=== PATIENT | female | born 2000 | race Two or more races ===

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

== ENCOUNTER 2019-02-12 03:00 | Emergency (ER) | payer SELFPAY ==
[2019-02-12] MEDS ORDERED: NORMAL SALINE 1000 ML 1,000 ML IV ONE (03:17)
[2019-02-12] MEDS ORDERED: ONDANSETRON HCL INJ/PF 4 MG/2 ML SDV IV ONE (03:34)
[2019-02-12 03:40] LABS: HEMOGLOBIN 13.8 g/dL (12.0-15.5); MEAN CORPUSCULAR HEMOGLOBIN 29.7 pg (27.0-33.4); MEAN CORPUSCULAR HGB CONC 32.9 g/dL (32.0-36.0); MEAN CORPUSCULAR VOLUME 90 fl (80-97); PLATELET COUNT 374 10^3/uL (150-450); RED BLOOD COUNT 4.66 10^6/uL (3.72-5.28); RED CELL DISTRIBUTION WIDTH 13.4 % (11.5-14.0); WHITE BLOOD COUNT 23.7 10^3/uL (4.0-10.5)
[2019-02-12 03:59] LABS: ALBUMIN 4.6 g/dL (3.7-5.6); ALKALINE PHOSPHATASE 73 U/L (50-135); ANION GAP 10 (5-19); ASPARTATE AMINO TRANSFERASE 36 U/L (5-30); BILIRUBIN,DIRECT 0.2 mg/dL (0.0-0.4); BILIRUBIN,TOTAL 0.5 mg/dL (0.2-1.3); BLOOD UREA NITROGEN 18 mg/dL (7-20); CALCIUM 9.8 mg/dL (8.4-10.2); CARBON DIOXIDE 22 mmol/L (22-30); CHLORIDE 108 mmol/L (98-107); GLUCOSE 134 mg/dL (75-110); POTASSIUM 5.2 mmol/L (3.6-5.0); TOTAL PROTEIN 8.1 g/dL (6.3-8.2)
[2019-02-12 04:03] LABS: ABSOLUTE LYMPHOCYTES# (MANUAL) 1.4 10^3/uL (0.5-4.7); ABSOLUTE MONOCYTES # (MANUAL) 0.5 10^3/uL (0.1-1.4); BASOPHILS % (MANUAL) 0 % (0-2); EOSINOPHILS % (MANUAL) 0 % (0-6); LYMPHOCYTES % (MANUAL) 6 % (13-45); MONOCYTES % (MANUAL) 2 % (3-13); SEGMENTED NEUTROPHILS % (MAN) 92 % (42-78); TOTAL CELLS COUNTED 100
[2019-02-12 04:05] LABS: OVALOCYTES SLIGHT; PLATELET COMMENT ADEQUATE
[2019-02-12 05:58] LABS: APPEARANCE,URINE CLOUDY; BILIRUBIN,URINE NEGATIVE (NEGATIVE); COLOR,URINE YELLOW; GLUCOSE, URINE NEGATIVE (NEGATIVE); KETONES,URINE TRACE mg/dL (NEGATIVE); LEUKOCYTE ESTERASE,URINE SMALL (NEGATIVE); NITRITE,URINE NEGATIVE (NEGATIVE); PROTEIN,URINE 30 mg/dL (NEGATIVE); URINE SPECIFIC GRAVITY 1.012; UROBILINOGEN,URINE NEGATIVE mg/dL (<2.0)
--- NOTE | 2019-02-12 06:19 | ER Document Report ---
ED General - General Chief Complaint: Abdominal Pain Stated Complaint: ABDOMINAL PAIN Time Seen by Provider: 02/12/19 06:15 Primary Care Provider: ERIC PETERSON MD [Primary Care Provider] - Follow up as needed TRAVEL OUTSIDE OF THE [place] IN LAST 30 DAYS: No - HPI Patient complains to provider of: Abdominal pain Notes: 18-year-old female presents with approximately 6 hours of epigastric abdominal pain 8/10 sharp in nature without radiation nothing makes it better or worse. This is been associated profound nausea and vomiting. Patient does have history of urinary tract infections along with severe constipation. Patient denies any fever chills or trauma to her abdomen. - Related Data Allergies/Adverse Reactions: sulfamethoxazole [From Septra] Allergy (Unknown, Verified 11/24/18 10:07) trimethoprim [From Septra] Allergy (Unknown, Verified 11/24/18 10:07) latex [Latex] Allergy (Verified 11/24/18 10:07) petrolatum,white [From Petroleum Jelly] Allergy (Verified 11/24/18 10:07) Past Medical History - Social History Smoking Status: Never Smoker Chew tobacco use (# tins/day): No Drug Abuse: None Family History: Hypertension Patient has suicidal ideation: No Patient has homicidal ideation: No Renal/ Medical History: Denies: Hx Peritoneal Dialysis Musculoskeletal Medical History: Reports Hx Musculoskeletal Trauma Past Surgical History: Reports: Hx Orthopedic Surgery, Hx Urinary Tract Surgery - Immunizations Immunizations up to date: Yes Hx Diphtheria, Pertussis, Tetanus Vaccination: Yes Review of Systems - Review of Systems Notes: REVIEW OF SYSTEMS: CONSTITUTIONAL: -fevers, -chills EENT: -eye pain, -difficulty swallowing, -nasal congestion CARDIOVASCULAR: -chest pain, -syncope. RESPIRATORY: -cough, -SOB GASTROINTESTINAL: positive abdominal pain, positive n/v, -diarrhea GENITOURINARY: -dysuria, -hematuria MUSCULOSKELETAL: -back pain, -neck pain SKIN: -rash or skin lesions. HEMATOLOGIC: -easy bruising or bleeding. LYMPHATIC: -swollen, enlarged glands. NEUROLOGICAL: -altered mental status or loss of consciousness, -headache, - neurologic symptoms PSYCHIATRIC: -anxiety, -depression. ALL OTHER SYSTEMS REVIEWED AND NEGATIVE. Physical Exam - Vital signs Vitals: Temp Pulse Resp BP Pulse Ox 97.3 F 67 18 123/79 100 02/12/19 03:14 10/11/19 03:14 02/12/19 03:14 02/12/19 03:14 02/12/19 03:14 Course - Re-evaluation Re-evalutation: 02/12/19 09:11 Pleasant 18-year-old female with medical history of bowel resection in the past. Born with some spina bifida multiple UTI history. Presents with abdominal pain concerning for severe constipation versus UTI. Patient's blood work does find leukocytosis. Physical exam reassuring. Patient is afebrile stable vitals within normal limits. Patient's urine appears to have mild infection. We will treat this infection with antibiotics and send for urine culture. Patient's abdomen pelvis CT finds no acute process at this time. Lengthy conversation with family regarding possible change in symptomatology requirement to follow-up with PCP. Will also prescribe antiemetics and analgesia. Given strict return precautions anything should worsen or change please return. - Vital Signs Vital signs: Temp Pulse Resp BP Pulse Ox 97.9 F 81 17 117/74 100 02/12/19 05:23 02/12/19 05:23 02/12/19 05:23 02/12/19 05:23 02/12/19 05:23 - Laboratory Result Diagrams: 02/12/19 03:30 02/12/19 03:30 Laboratory results interpreted by me: 02/12/19 02/12/19 02/12/19 03:30 03:30 05:18 WBC 23.7 H Seg Neuts % (Manual) 92 H Lymphocytes % (Manual) 6 L Monocytes % (Manual) 2 L Abs Neuts (Manual) 21.8 H Potassium 5.2 H Chloride 108 H Glucose 134 H AST 36 H Urine Protein 30 H Urine Ketones TRACE H Urine Blood SMALL H Ur Leukocyte Esterase SMALL H Discharge - Discharge Clinical Impression: UTI (urinary tract infection) Qualifiers: Urinary tract infection type: site unspecified Hematuria presence: without hematuria Qualified Code(s): N39.0 - Urinary tract infection, site not specified Condition: Stable Disposition: HOME, SELF-CARE Instructions: Urinary Tract Infection ([facility]) Prescriptions: Cefdinir 300 mg PO BID #14 capsule Oxycodone HCl [Oxycontin Ir 5 Mg Tablet] 1 - 2 mg PO Q4H PRN #15 tablet PRN Reason: For Pain Ondansetron [Zofran Odt 4 mg Tablet] 1 - 2 tab PO Q4H PRN #15 tab.rapdis PRN Reason: For Nausea/Vomiting Referrals: ERIC PETERSON MD [Primary Care Provider] - Follow up as needed
--- NOTE | 2019-02-12 08:26 | RADIOLOGY REPORT (SQ) ---
EXAM DESCRIPTION: CT ABD/PELVIS WITH IV ONLY COMPLETED DATE/TIME: 02/12/2019 7:57 am REASON FOR STUDY: abdominal pain COMPARISON: 11/07/2013 TECHNIQUE: CT scan of the abdomen and pelvis performed using helical scanning technique with dynamic intravenous contrast injection. No oral contrast. Images reviewed with lung, soft tissue, and bone windows. Reconstructed coronal and sagittal MPR images reviewed. Delayed images for evaluation of the urinary system also acquired. All images stored on PACS. All CT scanners at this facility use dose modulation, iterative reconstruction, and/or weight based d osing when appropriate to reduce radiation dose to as low as reasonably achievable (ALARA). [facility]: Dose Right [facility]: CareDose [facility]: Dose Right [facility]: Teradose 4D [facility]: INRIX CONTRAST TYPE AND DOSE: contrast/concentration: Isovue 350.00 mg/ml; Total Contrast Delivered: 59.0 ml; Total Saline Delivered: 60.3 ml RENAL FUNCTION: None required. The patient is less than 50 years old. RADIATION DOSE: CT Rad equipment meets quality standard of care and radiation dose reduction techniq ues were employed. CTDIvol: 5.0 - 5.6 mGy. DLP: 504 mGy-cm.. LIMITATIONS: None. FINDINGS: LOWER CHEST: No significant findings. No nodules or infiltrates. LIVER: Normal size. No masses. No dilated ducts. SPLEEN: Normal size. No focal lesions. PANCREAS: No masses. No significant calcifications. No adjacent inflammation or peripancreatic fluid collections. Pancreatic duct not dilated. GALLBLADDER: No identified stones by CT criteria. No inflammatory changes to suggest cholecystitis. ADRENAL GLANDS: No significant masses or asymmetry. RIGHT KIDNEY AND URETER: No solid masses. No significant calcifications. No hydronephrosis or hyd roureter. LEFT KIDNEY AND URETER: Scarring and atrophy of the left kidney consistent with prior infectious or o bstructive insult. No solid masses. No significant calcifications. No hydronephrosis or hydroure ter. AORTA AND VESSELS: No aneurysm. No dissection. Renal arteries, SMA, celiac without stenosis. RETROPERITONEUM: No retroperitoneal adenopathy, hemorrhage or masses. BOWEL AND PERITONEAL CAVITY: There are postoperative findings of prior distal small bowel resection. There is a single fluid-filled but not grossly distended loop of bowel proximal to the anastomosis m easuring 3.2 cm (series 5, image 39). No masses or inflammatory changes. No free fluid or peritoneal masses. APPENDIX: Normal. 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 No free fluid. Normal bladder. ABDOMINAL WALL: No masses. No hernias. BONES: No significant or acute findings. OTHER: No other significant finding. IMPRESSION: 1. No definite CT findings of the abdomen or pelvis to explain upper abdominal pain. 2. There are postoperative findings of prior distal small bowel resection. There is a single fluid-f illed but not grossly distended loop of bowel proximal to the anastomosis measuring 3.2 cm (series 5, image 39). Bowel obstruction may be further evaluated by fluoroscopic small bowel follow-through if suspected. 3. Incidental left ovarian teratoma. TECHNICAL DOCUMENTATION: JOB ID: [id number] Quality ID # [id number]: Final reports with documentation of one or more dose reduction techniques (e.g., Au tomated exposure control, adjustment of the mA and/or kV according to patient size, use of iterative reconstruction technique) 2010 [email or web address]- All Rights Reserved Reading location - IP/workstation name: [email or web address]
[2019-02-12 10:28] VITALS: BP 96/46
== END 2019-02-12 10:06 | disposition home or self-care (01) ==
LOC: ER 03:00
DX: N39.0 Urinary tract infection, site not specified (principal); R10.13 Epigastric pain; Z88.3 Allergy status to other anti-infective agents; Z91.040 Latex allergy status; Z87.440 Personal history of urinary (tract) infections
CPT/HCPCS: 99284; 96361; 96374; 36415; 87086; 83690; 85025; 81025; 80053; 81001; 74177; J2405; J7030

== ENCOUNTER 2019-06-07 11:13 | Observation (INO) | payer MEDICAID ==
[2019-06-07] MEDS ORDERED: ONDANSETRON HCL INJ/PF 4 MG/2 ML SDV IV ONE ×2 (11:53→13:01)
[2019-06-07] MEDS ORDERED: NORMAL SALINE 1000 ML 1,000 ML IV ONE ×2 (11:53→13:01)
--- NOTE | 2019-06-07 11:57 | ER Document Report ---
ED Medical Screen (RME) - General Chief Complaint: Nausea/Vomiting Stated Complaint: ABDOMINAL PAIN Time Seen by Provider: 06/07/19 11:48 Primary Care Provider: ERIC PETERSON MD [Primary Care Provider] - Follow up as needed Notes: HPI: History is obtained from the patient and her mother. A 19-year-old female with history of spina bifida, history of bowel resection presenting to the emergency department complaining of generalized abdominal pain with vomiting. Patient states that she has been having episodes like this over the last 6 months. Patient has been seen at [place] previously. Patient believes she has had CT imaging, ultrasound and x-ray imaging previously but no one has been able to tell her why she is having the episodes of abdominal pain with vomiting. States that it happens approximately once a month where she will develop generalized abdominal pain and had multiple episodes of vomiting, may last several days. She has not yet been evaluated by gastroenterology. Has not had fevers with this. Patient states that frequently she is told she has UTI causing her symptoms but does not have any discomfort with urination or fevers. I have greeted and performed a rapid initial assessment of this patient. A comprehensive ED assessment and evaluation of the patient, analysis of test results and completion of the medical decision making process will be conducted by additional ED providers PHYSICAL EXAMINATION: GENERAL: Well-appearing, well-nourished and in mild acute distress, active vomiting in triage HEAD: Atraumatic, normocephalic. EYES: sclera anicteric, conjunctiva are normal. ENT: Moist mucous membranes. NECK: Normal range of motion LUNGS: Normal work of breathing, lung sounds clear to auscultation HEART: 2+ radial pulses bilaterally, regular rate and rhythm ABD: limited by positioning for exam in triage. Mild generalized abdominal pain on palpation EXTREMITIES: no pitting or edema. No cyanosis. NEUROLOGICAL: No focal neurological deficits. Moves all extremities spontaneously and on command. PSYCH: Normal mood, normal affect. SKIN: Warm, Dry, normal turgor, no rashes or lesions noted. TRAVEL OUTSIDE OF THE [place] IN LAST 30 DAYS: No - Related Data Allergies/Adverse Reactions: sulfamethoxazole [From Septra] Allergy (Unknown, Verified 11/24/18 10:07) trimethoprim [From Septra] Allergy (Unknown, Verified 11/24/18 10:07) latex [Latex] Allergy (Verified 11/24/18 10:07) petrolatum,white [From Petroleum Jelly] Allergy (Verified 11/24/18 10:07) Home Medications: Lansaprazole Past Medical History Renal/ Medical History: Denies: Hx Peritoneal Dialysis Musculoskeltal Medical History: Reports Hx Musculoskeletal Trauma Past Surgical History: Reports: Hx Orthopedic Surgery, Hx Urinary Tract Surgery - Immunizations Immunizations up to date: Yes Hx Diphtheria, Pertussis, Tetanus Vaccination: Yes Physical Exam - Vital signs Vitals: Temp Pulse Resp BP Pulse Ox 97.9 F 64 18 143/83 H 99 06/07/19 11:30 06/07/19 11:30 06/07/19 11:30 06/07/19 11:30 06/07/19 11:30 Course - Vital Signs Vital signs: Temp Pulse Resp BP Pulse Ox 97.9 F 64 18 143/83 H 99 06/07/19 11:30 06/07/19 11:30 06/07/19 11:30 06/07/19 11:30 06/07/19 11:30 Doctor's Discharge - Discharge Referrals: ERIC PETERSON MD [Primary Care Provider] - Follow up as needed
[2019-06-07 12:29] LABS: APPEARANCE,URINE CLOUDY; BILIRUBIN,URINE NEGATIVE (NEGATIVE); COLOR,URINE YELLOW; GLUCOSE, URINE NEGATIVE (NEGATIVE); KETONES,URINE NEGATIVE (NEGATIVE); LEUKOCYTE ESTERASE,URINE MODERATE (NEGATIVE); NITRITE,URINE NEGATIVE (NEGATIVE); PROTEIN,URINE 30 mg/dL (NEGATIVE); URINE SPECIFIC GRAVITY 1.011; UROBILINOGEN,URINE NEGATIVE mg/dL (<2.0)
--- NOTE | 2019-06-07 12:46 | RADIOLOGY REPORT (SQ) ---
EXAM DESCRIPTION: ABDOMEN 2 VIEWS COMPLETED DATE/TIME: 06/07/2019 12:35 pm REASON FOR STUDY: eval for obstructive pattern COMPARISON: 12/07/2018 NUMBER OF VIEWS: Two views. TECHNIQUE: Supine and erect/decubitus radiographic images of the abdomen acquired. LIMITATIONS: None. FINDINGS: FREE AIR: None. No abnormal gas collections. LUNG BASES: Clear. BOWEL GAS PATTERN: Nonobstructive pattern. No dilated loops or air fluid levels. CALCIFICATIONS: Few scattered calcific densities overlie pelvis, likely phleboliths. SOFT TISSUES: No gross mass or suggestion of organomegaly. HARDWARE: None in the abdomen. BONES: No acute fracture. No worrisome bone lesions. Serpiginous thoracolumbar curvature. OTHER: No other significant finding. IMPRESSION: No evidence of intestinal obstruction or other acute process. TECHNICAL DOCUMENTATION: JOB ID: [id number] [employer]- All Rights Reserved Reading location - IP/workstation name: [email or web address]
[2019-06-07] MEDS ORDERED: KETOROLAC TROMETHAMINE INJ/PF 30 MG/1 ML SDV IV ONE (13:01)
[2019-06-07] MEDS ORDERED: MORPHINE SULFATE 10 MG/ML INJ IV ONE (13:01)
[2019-06-07 13:27] LABS: HEMATOCRIT 36.4 % (36.0-47.0); HEMOGLOBIN 12.1 g/dL (12.0-15.5); MEAN CORPUSCULAR HEMOGLOBIN 30.6 pg (27.0-33.4); MEAN CORPUSCULAR HGB CONC 33.1 g/dL (32.0-36.0); MEAN CORPUSCULAR VOLUME 92 fl (80-97); PLATELET COUNT 358 10^3/uL (150-450); RED BLOOD COUNT 3.94 10^6/uL (3.72-5.28); RED CELL DISTRIBUTION WIDTH 13.1 % (11.5-14.0); WHITE BLOOD COUNT 15.7 10^3/uL (4.0-10.5)
[2019-06-07 13:44] LABS: ALBUMIN 4.1 g/dL (3.5-5.0); ALKALINE PHOSPHATASE 75 U/L (38-126); ANION GAP 11 (5-19); ASPARTATE AMINO TRANSFERASE 32 U/L (14-36); BILIRUBIN,DIRECT 0.3 mg/dL (0.0-0.4); BILIRUBIN,TOTAL 0.6 mg/dL (0.2-1.3); BLOOD UREA NITROGEN 16 mg/dL (7-20); CALCIUM 9.4 mg/dL (8.4-10.2); CARBON DIOXIDE 21 mmol/L (22-30); CHLORIDE 108 mmol/L (98-107); GLUCOSE 109 mg/dL (75-110); POTASSIUM 4.2 mmol/L (3.6-5.0); TOTAL PROTEIN 7.3 g/dL (6.3-8.2)
--- NOTE | 2019-06-07 14:04 | ER Document Report ---
ED General - General Chief Complaint: Nausea/Vomiting Stated Complaint: ABDOMINAL PAIN Time Seen by Provider: 06/07/19 11:48 Primary Care Provider: ERIC PETERSON MD [Primary Care Provider] - Follow up as needed Mode of Arrival: Ambulatory Information source: Patient TRAVEL OUTSIDE OF THE [place] IN LAST 30 DAYS: No - HPI Notes: Patient presents with abdominal pain. She states approximately 6:54 AM this morning she began to have severe crampy lower abdominal pain. She states it is greatest suprapubically. This pain radiates throughout her abdomen. It is worse with movement and better with rest. It is severe and crampy in nature. Is been constant. She denies any dysuria urgency or frequency. No vaginal symptoms such as discharge or bleeding. Her last period was 2 weeks ago and normal. She does not believe that she currently is . Patient states that her stool this morning was normal but she has felt that is been hard to have a stool. She has had several episodes of vomiting this morning. She s tates she has had this pain since February randomly several times per month. She states she has been to multiple doctors but has not received a diagnosis. She states she has been referred to gastroenterology at [facility] but has yet to make an appointment. She states that when she has been seen she has been told multiple times that she has a urinary tract infection and takes antibiotics but she continues to get the pain. She states every time she is diagnosed with a urinary tract infection she never has any urinary symptoms. - Related Data Allergies/Adverse Reactions: sulfamethoxazole [From Septra] Allergy (Unknown, Verified 11/24/18 10:07) trimethoprim [From Septra] Allergy (Unknown, Verified 11/24/18 10:07) latex [Latex] Allergy (Verified 11/24/18 10:07) petrolatum,white [From Petroleum Jelly] Allergy (Verified 11/24/18 10:07) Home Medications: Lansaprazole Past Medical History - General Information source: Patient - Social History Smoking Status: Never Smoker Family History: Hypertension Patient has suicidal ideation: No Patient has homicidal ideation: No Renal/ Medical History: Denies: Hx Peritoneal Dialysis Musculoskeletal Medical History: Reports Hx Musculoskeletal Trauma Past Surgical History: Reports: Hx Orthopedic Surgery, Hx Urinary Tract Surgery - Immunizations Immunizations up to date: Yes Hx Diphtheria, Pertussis, Tetanus Vaccination: Yes Review of Systems - Review of Systems Constitutional: denies: Chills, Fever Cardiovascular: Chest pain. denies: Palpitations Respiratory: denies: Cough, Short of breath -: Yes All other systems reviewed and negative Physical Exam - Vital signs Vitals: Temp Pulse Resp BP Pulse Ox 97.9 F 64 18 143/83 H 99 06/07/19 11:30 06/07/19 11:30 06/07/19 11:30 06/07/19 11:30 06/07/19 11:30 Interpretation: Normal - General General appearance: Appears well, Alert - HEENT Head: Normocephalic, Atraumatic Eyes: Normal Pupils: PERRL - Respiratory Respiratory status: No respiratory distress Chest status: Nontender Breath sounds: Normal Chest palpation: Normal - Cardiovascular Rhythm: Regular Heart sounds: Normal auscultation Murmur: No - Abdominal Inspection: Normal Distension: No distension Bowel sounds: Hypoactive Tenderness: Tender - Patient has bilateral lower quadrant abdominal pain to palpation as well as suprapubic pain. The tenderness seems to be greatest in the suprapubic area. There is no rebound or guarding. Organomegaly: No organomegaly - Back Back: Normal, Nontender - Extremities General upper extremity: Normal inspection, Nontender, Normal color, Normal ROM, Normal temperature General lower extremity: Normal inspection, Nontender, Normal color, Normal ROM, Normal temperature, Normal weight bearing. No: Luda's sign - Neurological Neuro grossly intact: Yes Cognition: Normal Orientation: AAOx4 [place] Coma Scale Eye Opening: Spontaneous [place] Coma Scale Verbal: Oriented Rachel Coma Scale Motor: Obeys Commands [place] Coma Scale Total: 15 Speech: Normal Motor strength normal: LUE, RUE, LLE, RLE Sensory: Normal - Psychological Associated symptoms: Normal affect, Normal mood - Skin Skin Temperature: Warm Skin Moisture: Dry Skin Color: Normal Course - Re-evaluation Re-evalutation: 06/07/19 16:[address] scan returned showing a small bowel obstruction. On reexam patient's abdomen is significantly less tender. She did have a bowel movement this morning. Clinical course seems most consistent with a partial small bowel obstruction. I did discuss the case with the surgeon as well as the h ospitalist. At this time is recommended the patient be admitted for observation and symptom control and a possible repeat imaging in the morning. - Vital Signs Vital signs: Temp Pulse Resp BP Pulse Ox 97.9 F 64 18 143/83 H 99 06/07/19 11:30 06/07/19 11:30 06/07/19 11:30 06/07/19 11:30 06/07/19 11:30 - Laboratory Result Diagrams: 06/07/19 13:12 06/07/19 13:12 Laboratory results interpreted by me: 06/07/19 06/07/19 06/07/19 12:00 13:12 13:12 WBC 15.7 H Seg Neuts % (Manual) 90 H Lymphocytes % (Manual) 7 L Abs Neuts (Manual) 14.1 H Chloride 108 H Carbon Dioxide 21 L Creatinine 0.47 L Urine Protein 30 H Urine Blood MODERATE H Ur Leukocyte Esterase MODERATE H - Diagnostic Test Radiology reviewed: Image reviewed, Reports reviewed Discharge - Discharge Clinical Impression: Partial small bowel obstruction Spina bifida of lumbar spine Qualifiers: Presence of hydrocephalus: without hydrocephalus Qualified Code(s): Q05.7 - Lumbar spina bifida without hydrocephalus Condition: Stable Disposition: ADMITTED INPATIENT Admitting Provider: Rancho (Hospitalist) - [facility] admit Unit Admitted: Medical Floor Referrals: ERIC PETERSON MD [Primary Care Provider] - Follow up as needed
[2019-06-07 14:08] LABS: ABSOLUTE LYMPHOCYTES# (MANUAL) 1.1 10^3/uL (0.5-4.7); ABSOLUTE MONOCYTES # (MANUAL) 0.5 10^3/uL (0.1-1.4); BASOPHILS % (MANUAL) 0 % (0-2); EOSINOPHILS % (MANUAL) 0 % (0-6); LYMPHOCYTES % (MANUAL) 7 % (13-45); MONOCYTES % (MANUAL) 3 % (3-13); SEGMENTED NEUTROPHILS % (MAN) 90 % (42-78); TOTAL CELLS COUNTED 100
[2019-06-07 14:14] LABS: PLATELET COMMENT ADEQUATE; RBC MORPHOLOGY COMMENT NORMO-CYTIC/CHROMIC
--- NOTE | 2019-06-07 16:38 | RADIOLOGY REPORT (SQ) ---
EXAM DESCRIPTION: CT ABD/PELVIS WITH IV ONLY COMPLETED DATE/TIME: 06/07/2019 3:05 pm REASON FOR STUDY: severe abd pain. Diffuse abdominal pain. History of bladder augmentation. COMPARISON: 02/12/2019. 11/04/2017. TECHNIQUE: CT scan of the abdomen and pelvis performed using helical scanning technique with dynamic intravenous contrast injection. No oral contrast. Images reviewed with lung, soft tissue, and bone windows. Reconstructed coronal and sagittal MPR images reviewed. Delayed images for evaluation of the urinary system also acquired. All images stored on PACS. All CT scanners at this facility use dose modulation, iterative reconstruction, and/or weight based d osing when appropriate to reduce radiation dose to as low as reasonably achievable (ALARA). [facility]: Dose Right [facility]: CareDose [facility]: Dose Right [facility]: Teradose 4D [facility]: [employer] CONTRAST TYPE AND DOSE: contrast/concentration: Isovue 350.00 mg/ml; Total Contrast Delivered: 62.0 ml; Total Saline Delivered: 65.0 ml RENAL FUNCTION: None required. The patient is less than 50 years old. RADIATION DOSE: CT Rad equipment meets quality standard of care and radiation dose reduction techniq ues were employed. CTDIvol: 5.1 - 5.9 mGy. DLP: 560 mGy-cm.. LIMITATIONS: None. FINDINGS: LOWER CHEST: No significant findings. No nodules or infiltrates. LIVER: Normal size. No masses. No dilated ducts. SPLEEN: Normal size. No focal lesions. PANCREAS: No masses. No significant calcifications. No adjacent inflammation or peripancreatic fluid collections. Pancreatic duct not dilated. GALLBLADDER: No identified stones by CT criteria. No inflammatory changes to suggest cholecystitis. ADRENAL GLANDS: No significant masses or asymmetry. RIGHT KIDNEY AND URETER: No solid masses. No significant calcifications. No hydronephrosis or hyd roureter. LEFT KIDNEY AND URETER: There is right renal cortical scarring. No solid mass. Small kilos feel div erticulum at the left superior pole. No significant calcifications. No hydronephrosis or hydroure ter. AORTA AND VESSELS: No aneurysm. No dissection. Renal arteries, SMA, celiac without stenosis. RETROPERITONEUM: No retroperitoneal adenopathy, hemorrhage or masses. BOWEL AND PERITONEAL CAVITY: There is postoperative change of prior distal small bowel resection. Th ere is fecalization of small bowel contents in transition point at the anastomosis consistent with sm all bowel obstruction. The distal small bowel and colon are relatively decompressed. No mass. APPENDIX: Normal. PELVIS: A 6.3 x 3.6 x 4.7 cm left ovarian teratoma is unchanged when compared over previous examinati ons. No right ovarian mass. The uterus has normal size and position. Urinary bladder has a lobulat ed contour, possibly from postsurgical change. No bladder wall thickening, intraluminal bladder mass or debris. ABDOMINAL WALL: No masses. No hernias. BONES: No significant or acute findings. OTHER: No other significant finding. IMPRESSION: 1. Small bowel obstruction at the distal small bowel surgical anastomosis. No perforation or periton eal abscess. 2. Appendix is normal. 3. 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 No hydronephrosis. 4. Left ovarian teratoma unchanged. TECHNICAL DOCUMENTATION: JOB ID: [id number] Quality ID # [id number]: Final reports with documentation of one or more dose reduction techniques (e.g., Au tomated exposure control, adjustment of the mA and/or kV according to patient size, use of iterative reconstruction technique) 2010 [employer]- All Rights Reserved Reading location - IP/workstation name: [email or web address]
[2019-06-07] MEDS ORDERED: ALBUTEROL SULFATE 0.083% NEB 2.5 MG/3 ML AMPUL NEB PRN (17:08)
[2019-06-07] MEDS ORDERED: ACETAMINOPHEN 325 MG TABLET PO PRN (17:08)
[2019-06-07] MEDS ORDERED: PROMETHAZINE HCL INJ 25 MG/1 ML VIAL IV PRN (17:08)
[2019-06-07] MEDS ORDERED: ONDANSETRON HCL INJ/PF 4 MG/2 ML SDV IV PRN (17:08)
[2019-06-07] MEDS ORDERED: KETOROLAC TROMETHAMINE INJ/PF 30 MG/1 ML SDV IV PRN (17:10)
--- NOTE | 2019-06-07 17:54 | PDOC H&P ---
History of Present Illness Admission Date/PCP: ERIC PETERSON MD Patient complains of: abd pain, n/v History of Present Illness: ELEAZAR HENSON I is a 19 year old female with a past medical history of spina bifida; small bowel, hernia and bladder surgery; prior partial SBO, who presented to the emergency department today with a complaint of 1 day of abdo sundeep discomfort, nausea and vomiting. She reports 10 episodes of emesis. Her last bowel movement was this morning; described as a mix of hard and watery stools. Patient has a history of the same and is scheduled to see [place] [facility] in 3 months. Evaluation in the emergency department revealed stable vital signs, leukocytosis (WBCs 15.7), unremarkable chemistry, normal urinalysis urinalysis suggestive of UTI, however, patient is asymptomatic. Abdominal x-ray was benign. Abdominal CT demonstrated small bowel obstruction at the distal small bowel surgical anastomosis without perforation or abscess. The emergency department provider spoke with surgery; recommends conservative management with bowel rest. She is referred to the hospitalist service for admission and management of the above-stated complaints findings. 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 Musculoskeltal Medical History: Reports: None Skin Medical History: Reports: None Psychiatric Medical History: Reports: None Traumatic Medical History: Reports: None Hematology: Reports: None Infectious Medical History: Reports: None Past Surgical History Past Surgical History: Reports: Herniorrhaphy, Orthopedic Surgery, Other - bowel resection, bladder expansion Social History Information Source: Patient, Relative Lives with: Parents Smoking Status: Never Smoker Frequency of Alcohol Use: None Hx Recreational Drug Use: No Drugs: None Hx Prescription Drug Abuse: No - Advance Directive Resuscitation Status: Full Code Surrogate healthcare decision maker:: Patient's mother. Family History Family History: Hypertension Parental Family History Reviewed: Yes Children Family History Reviewed: Yes Sibling(s) Family History Reviewed.: Yes Medication/Allergy Home Medications: Cefuroxime Axetil [Ceftin 500 mg Tablet] 500 mg PO BID 2 Days #4 tablet 11/05/17 Nitrofurantoin Macrocrystal [Macrodantin] 100 mg PO Q6 7 Days capsule 12/08/18 Cefdinir 300 mg PO BID #14 capsule 02/12/19 Ondansetron [Zofran Odt 4 mg Tablet] 1 - 2 tab PO Q4H PRN #15 tab.rapdis 02/12/19 Oxycodone HCl [Oxycontin Ir 5 Mg Tablet] 1 - 2 mg PO Q4H PRN #15 tablet 02/12/19 Allergies/Adverse Reactions: sulfamethoxazole [From Septra] Allergy (Unknown, Verified 11/24/18 10:07) trimethoprim [From Septra] Allergy (Unknown, Verified 11/24/18 10:07) latex [Latex] Allergy (Verified 11/24/18 10:07) petrolatum,white [From Petroleum Jelly] Allergy (Verified 11/24/18 10:07) Review of Systems Constitutional: ABSENT: chills, fever(s), headache(s), weight gain, weight loss Eyes: ABSENT: visual disturbances Ears: ABSENT: hearing changes Cardiovascular: ABSENT: chest pain, dyspnea on exertion, edema, orthropnea, palpitations Respiratory: ABSENT: cough, hemoptysis Gastrointestinal: PRESENT: abdominal pain, nausea, vomiting. ABSENT: constipation, diarrhea, hematemesis, hematochezia Genitourinary: ABSENT: dysuria, hematuria Musculoskeletal: ABSENT: joint swelling Integumentary: ABSENT: rash, wounds Neurological: ABSENT: abnormal gait, abnormal speech, confusion, dizziness, focal weakness, syncope Psychiatric: ABSENT: anxiety, depression, homidical ideation, suicidal ideation Endocrine: ABSENT: cold intolerance, heat intolerance, polydipsia, polyuria Hematologic/Lymphatic: ABSENT: easy bleeding, easy bruising Physical Exam Vital Signs: Temp Pulse Resp BP Pulse Ox 97.9 F 64 18 143/83 H 99 06/07/19 11:30 06/07/19 11:30 06/07/19 11:30 06/07/19 11:30 06/07/19 11:30 Intake & Output 06/06/19 06/07/19 06/08/19 06:59 06:59 06:59 Intake Total 1000 Balance 1000 Weight 54.431 kg General appearance: PRESENT: no acute distress, well-developed, well-nourished Head exam: PRESENT: atraumatic, normocephalic Eye exam: PRESENT: conjunctiva pink, EOMI, PERRLA. ABSENT: scleral icterus Ear exam: PRESENT: normal external ear exam Mouth exam: PRESENT: moist, tongue midline Neck exam: ABSENT: carotid bruit, JVD, lymphadenopathy, thyromegaly Respiratory exam: PRESENT: clear to auscultation jakob. ABSENT: rales, rhonchi, wheezes Cardiovascular exam: PRESENT: RRR. ABSENT: diastolic murmur, rubs, systolic murmur Pulses: PRESENT: normal dorsalis pedis pul Vascular exam: PRESENT: normal capillary refill GI/Abdominal exam: PRESENT: hyperactive bowel sounds, soft. ABSENT: distended, guarding, mass, organolmegaly, rebound, tenderness Rectal exam: PRESENT: deferred Extremities exam: PRESENT: full ROM. ABSENT: calf tenderness, clubbing, pedal edema Neurological exam: PRESENT: alert, awake, oriented to person, oriented to place, oriented to time, oriented to situation, CN II-XII grossly intact. ABSENT: motor sensory deficit Psychiatric exam: PRESENT: appropriate affect, normal mood. ABSENT: homicidal ideation, suicidal ideation Skin exam: PRESENT: dry, intact, warm. ABSENT: cyanosis, rash Results Laboratory Results: 06/07/19 13:12 06/07/19 13:12 06/07/19 06/07/19 06/07/19 12:00 13:12 13:12 WBC 15.7 H RBC 3.94 Hgb 12.1 Hct 36.4 MCV 92 MCH 30.6 MCHC 33.1 RDW 13.1 Plt Count 358 Seg Neutrophils % Not Reportable Sodium 140.4 Potassium 4.2 Chloride 108 H Carbon Dioxide 21 L Anion Gap 11 BUN 16 Creatinine 0.47 L Est GFR ( Amer) > 60 Glucose 109 Calcium 9.4 Total Bilirubin 0.6 AST 32 Alkaline Phosphatase 75 Total Protein 7.3 Albumin 4.1 Lipase 58.1 Urine Color YELLOW Urine Appearance CLOUDY Urine pH 6.0 Ur Specific [place] 1.011 Urine Protein 30 H Urine Glucose (UA) NEGATIVE Urine Ketones NEGATIVE Urine Blood MODERATE H Urine Nitrite NEGATIVE Ur Leukocyte Esterase MODERATE H Urine WBC (Auto) 143 Urine RBC (Auto) 18 Impressions: Abdomen/Pelvis CT 06/07/19 00:00 IMPRESSION: 1. Small bowel obstruction at the distal small bowel surgical anastomosis. No perforation or peritoneal abscess. 2. Appendix is normal. 3. 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 No hydronephrosis. 4. Left ovarian teratoma unchanged. Abdomen X-Ray 06/07/19 11:54 IMPRESSION: No evidence of intestinal obstruction or other acute process. Assessment and Plan - Diagnosis (1) Small bowel obstruction Is this a current diagnosis for this admission?: Yes Plan: Patient is admitted to the medical floor. She is placed in n.p.o. status with the exception of ice chips. Continue maintenance IV fluids. Antiemetics and analgesics as needed. Avoid narcotics. (2) Nausea & vomiting Is this a current diagnosis for this admission?: Yes Plan: Secondary to #1. Patient is comfortable at this time; no indications for NG tube. Antiemetics as needed. (3) Abdominal pain Is this a current diagnosis for this admission?: Yes Plan: Secondary to #1. Evaluation management as above. (4) Leukocytosis Is this a current diagnosis for this admission?: Yes Plan: Secondary to #1. Evaluation management as above. No indications for antibiotic therapy at this time. (5) Spina bifida of lumbar spine Qualifiers: Presence of hydrocephalus: without hydrocephalus Qualified Code(s): Q05.7 - Lumbar spina bifida without hydrocephalus Is this a current diagnosis for this admission?: Yes Plan: Patient is at her baseline functional status; ambulatory without difficulty. She does have a petroleum jelly and latex allergy. - Time Time Spent with patient: 35 or more minutes Anticipated discharge: Home Within: within 24 hours
[2019-06-07] MEDS: NORMAL SALINE 1000 ML 1,000 ML IV PRN ×2 (19:09→23:44)
[2019-06-07] MEDS: FAMOTIDINE INJ/PF 20 MG/2 ML SDV IV SCH (22:01)
[2019-06-07] MEDS: HEPARIN SOD (PORCINE) 5,000 UNIT/ML 1 ML VIAL SUBCUT SCH (22:02)
[2019-06-08] MEDS ORDERED: INFLUENZA QUAD (6MOS+) 2019-20 VAC 0.5 ML SYR IM ONE (02:36)
[2019-06-08] MEDS: HEPARIN SOD (PORCINE) 5,000 UNIT/ML 1 ML VIAL SUBCUT SCH ×3 (05:49→21:30)
[2019-06-08 06:14] LABS: HEMATOCRIT 31.2 % (36.0-47.0); HEMOGLOBIN 10.6 g/dL (12.0-15.5); MEAN CORPUSCULAR HEMOGLOBIN 31.1 pg (27.0-33.4); MEAN CORPUSCULAR HGB CONC 33.9 g/dL (32.0-36.0); MEAN CORPUSCULAR VOLUME 92 fl (80-97); PLATELET COUNT 274 10^3/uL (150-450); RED BLOOD COUNT 3.41 10^6/uL (3.72-5.28); WHITE BLOOD COUNT 9.8 10^3/uL (4.0-10.5)
[2019-06-08 06:30] LABS: ANION GAP 5 (5-19); BLOOD UREA NITROGEN 11 mg/dL (7-20); CALCIUM 8.5 mg/dL (8.4-10.2); CARBON DIOXIDE 21 mmol/L (22-30); CHLORIDE 113 mmol/L (98-107); GLUCOSE 77 mg/dL (75-110); POTASSIUM 3.9 mmol/L (3.6-5.0)
[2019-06-08] MEDS: NORMAL SALINE 1000 ML 1,000 ML IV PRN ×3 (07:57→23:47)
[2019-06-08] MEDS: FAMOTIDINE INJ/PF 20 MG/2 ML SDV IV SCH ×2 (09:10→21:30)
--- NOTE | 2019-06-08 16:08 | PDOC PROGRESS REPORT ---
Subjective Progress Note for:: 06/08/19 Subjective:: No adverse events overnight. No new complaints. No nausea or vomiting. She is passing gas but not had a bowel movement. No abdominal pain. Reason For Visit: SOB Physical Exam Vital Signs: Temp Pulse Resp BP Pulse Ox 97.5 F 67 16 107/63 100 06/08/19 15:28 06/08/19 15:28 06/08/19 15:28 06/08/19 15:28 06/08/19 15:28 Intake & Output 06/07/19 06/08/19 06/09/19 06:59 06:59 06:59 Intake Total [id number] Balance 1875 2108 Weight 55.3 kg General appearance: PRESENT: no acute distress, cooperative, disheveled Respiratory exam: PRESENT: clear to auscultation jakob, symmetrical, unlabored. ABSENT: accessory muscle use, crackles, prolonged expiratory phas, rales, retraction, rhonchi, tachypnea, wheezes Cardiovascular exam: PRESENT: RRR, +S1, +S2 Pulses: PRESENT: normal carotid pulses Vascular exam: PRESENT: normal capillary refill GI/Abdominal exam: PRESENT: normal bowel sounds, soft. ABSENT: distended, guarding, rebound, tenderness Extremities exam: ABSENT: clubbing, pedal edema Musculoskeletal exam: PRESENT: normal inspection. ABSENT: deformity Neurological exam: PRESENT: alert, awake, oriented to person, oriented to place, oriented to time, oriented to situation Psychiatric exam: PRESENT: appropriate affect, normal mood Skin exam: PRESENT: dry, warm Results Laboratory Results: 06/08/19 05:41 06/08/19 05:41 06/08/19 06/08/19 05:41 05:41 WBC 9.8 RBC 3.41 L Hgb 10.6 L Hct 31.2 L MCV 92 MCH 31.1 MCHC 33.9 RDW 13.0 Plt Count 274 Sodium 139.4 Potassium 3.9 Chloride 113 H Carbon Dioxide 21 L Anion Gap 5 BUN 11 Creatinine 0.47 L Est GFR ( Amer) > 60 Glucose 77 Calcium 8.5 Impressions: Abdomen/Pelvis CT 06/07/19 00:00 IMPRESSION: 1. Small bowel obstruction at the distal small bowel surgical anastomosis. No perforation or peritoneal abscess. 2. Appendix is normal. 3. 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 No hydronephrosis. 4. Left ovarian teratoma unchanged. Abdomen X-Ray 06/07/19 11:54 IMPRESSION: No evidence of intestinal obstruction or other acute process. Assessment and Plan - Diagnosis (1) Partial small bowel obstruction Is this a current diagnosis for this admission?: Yes Plan: She is passing gas and has excellent bowel sounds and a flat abdomen. We will start her on some clear liquids today and advance as tolerated. If she does well on this, we can probably send her home tomorrow. - Time Time Spent with patient: 15-24 minutes
[2019-06-09] MEDS: HEPARIN SOD (PORCINE) 5,000 UNIT/ML 1 ML VIAL SUBCUT SCH ×2 (05:42→13:46)
[2019-06-09] MEDS: NORMAL SALINE 1000 ML 1,000 ML IV PRN (08:04)
[2019-06-09] MEDS: FAMOTIDINE INJ/PF 20 MG/2 ML SDV IV SCH (09:38)
[2019-06-09 11:58] VITALS: BP 110/72
--- NOTE | 2019-06-09 18:01 | PDOC DISCHARGE SUMMARY ---
Impression - Admit/DC Date/PCP Admission Date/Primary Care Provider: 06/07/19 17:16 ERIC PETERSON MD Discharge Date: 06/09/19 - Discharge Diagnosis (1) Partial small bowel obstruction Is this a current diagnosis for this admission?: Yes - Additional Information Resuscitation Status: Full Code Discharge Diet: Regular Discharge Activity: Activity As Tolerated Referrals: HILARY CARTER DO [ACTIVE STAFF] - 06/24/19 11:00 am ([facility]) Home Medications: Ferrous Sulfate [Feosol 325 mg Tablet] 325 mg PO DAILY 06/07/19 Lansoprazole 30 mg PO DAILYP PRN 06/07/19 History of Present Illiness History of Present Illness: ELEAZAR HENSON I is a 19 year old female with a past medical history of spina bifida; small bowel, hernia and bladder surgery; prior partial SBO, who presented to the emergency department today with a complaint of 1 day of abdominal discomfort, nausea and vomiting. She reports 10 episodes of emesis. Her last bowel movement was this morning; described as a mix of hard and watery stools. Patient has a history of the same and is scheduled to see [place] [facility] in 3 months. Evaluation in the emergency department revealed stable vital signs, leukocytosis (WBCs 15.7), unremarkable chemistry, normal urinalysis urinalysis suggestive of UTI, however, patient is asymptomatic. Abdominal x-ray was benign. Abdominal CT demonstrated small bowel obstruction at the distal small bowel surgical anastomosis without perforation or abscess. The emergency department provider spoke with surgery; recommends conservative management with bowel rest. She is referred to the hospitalist service for admission and management of the above-stated complaints findings. Hospital Course Hospital Course: She had a rapid improvement in her condition with conservative measures. We advance her to clear liquids which she tolerated, then we advance her to full liquids which she also tolerated. She was having good bowel sounds and was passing gas and had a bowel movement. She was discharged in stable condition. Physical Exam Vital Signs: Temp Pulse Resp BP Pulse Ox 98.2 F 52 L 16 110/72 100 06/09/19 15:18 06/09/19 15:18 06/09/19 15:18 06/09/19 15:18 06/09/19 15:18 Intake & Output 06/08/19 06/09/19 06/10/19 06:59 06:59 06:59 Intake Total 1875 2005 1480 Output Total 0 Balance 18755 1480 Weight 55.3 kg 55.7 kg General appearance: PRESENT: no acute distress, cooperative, disheveled Respiratory exam: PRESENT: clear to auscultation jakob, symmetrical, unlabored. ABSENT: accessory muscle use, crackles, prolonged expiratory phas, rales, retraction, rhonchi, tachypnea, wheezes Cardiovascular exam: PRESENT: RRR, +S1, +S2 Pulses: PRESENT: normal carotid pulses Vascular exam: PRESENT: normal capillary refill GI/Abdominal exam: PRESENT: normal bowel sounds, soft. ABSENT: distended, guarding, rebound, tenderness Extremities exam: ABSENT: clubbing, pedal edema Musculoskeletal exam: PRESENT: normal inspection. ABSENT: deformity Neurological exam: PRESENT: alert, awake, oriented to person, oriented to place, oriented to time, oriented to situation Psychiatric exam: PRESENT: appropriate affect, normal mood Skin exam: PRESENT: dry, warm Results Laboratory Results: WBC 9.8 10^3/uL (4.0-10.5) 06/08/19 05:41 RBC 3.41 10^6/uL (3.72-5.28) L 06/08/19 05:41 Hgb 10.6 g/dL (12.0-15.5) L 06/08/19 05:41 Hct 31.2 % (36.0-47.0) L 06/08/19 05:41 MCV 92 fl (80-97) 06/08/19 05:41 MCH 31.1 pg (27.0-33.4) 06/08/19 05:41 MCHC 33.9 g/dL (32.0-36.0) 06/08/19 05:41 RDW 13.0 % (11.5-14.0) 06/08/19 05:41 Plt Count 274 10^3/uL (150-450) 06/08/19 05:41 Lymph % (Auto) Not Reportable 06/07/19 13:12 Hand % (Auto) Not Reportable 06/07/19 13:12 Eos % (Auto) Not Reportable 06/07/19 13:12 Baso % (Auto) Not Reportable 06/07/19 13:12 Absolute Neuts (auto) Not Reportable 06/07/19 13:12 Absolute Lymphs (auto) Not Reportable 06/07/19 13:12 Absolute Monos (auto) Not Reportable 06/07/19 13:12 Absolute Eos (auto) Not Reportable 06/07/19 13:12 Absolute Basos (auto) Not Reportable 06/07/19 13:12 Total Counted 100 06/07/19 13:12 Seg Neutrophils % Not Reportable 06/07/19 13:12 Seg Neuts % (Manual) 90 % (42-78) H 06/07/19 13:12 Lymphocytes % (Manual) 7 % (13-45) L 06/07/19 13:12 Monocytes % (Manual) 3 % (3-13) 06/07/19 13:12 Eosinophils % (Manual) 0 % (0-6) 06/07/19 13:12 Basophils % (Manual) 0 % (0-2) 06/07/19 13:12 Abs Neuts (Manual) 14.1 10^3/uL (1.7-8.2) H 06/07/19 13:12 Abs Lymphs (Manual) 1.1 10^3/uL (0.5-4.7) 06/07/19 13:12 Abs Monocytes (Manual) 0.5 10^3/uL (0.1-1.4) 06/07/19 13:12 Absolute Eos (Manual) 0.0 10^3/uL (0.0-0.6) 06/07/19 13:12 Abs Basophils (Manual) 0.0 10^3/uL (0.0-0.2) 06/07/19 13:12 Platelet Comment ADEQUATE 06/07/19 13:12 RBC Morph Comment NORMO-CYTIC/CHROMIC 06/07/19 13:12 Sodium 139.4 mmol/L (137-145) 06/08/19 05:41 Potassium 3.9 mmol/L (3.6-5.0) 06/08/19 05:41 Chloride 113 mmol/L (98-107) H 06/08/19 05:41 Carbon Dioxide 21 mmol/L (22-30) L 06/08/19 05:41 Anion Gap 5 (5-19) 06/08/19 05:41 BUN 11 mg/dL (7-20) 06/08/19 05:41 Creatinine 0.47 mg/dL (0.52-1.25) L 06/08/19 05:41 Est GFR ( Amer) > 60 (>60) 06/08/19 05:41 Est GFR (MDRD) Non-Af > 60 (>60) 06/08/19 05:41 Glucose 77 mg/dL (75-110) 06/08/19 05:41 Calcium 8.5 mg/dL (8.4-10.2) 06/08/19 05:41 Total Bilirubin 0.6 mg/dL (0.2-1.3) 06/07/19 13:12 Direct Bilirubin 0.3 mg/dL (0.0-0.4) 06/07/19 13:12 Neonat Total Bilirubin Not Reportable 06/07/19 13:12 Neonat Direct Bilirubin Not Reportable 06/07/19 13:12 Neonat Indirect Bili Not Reportable 06/07/19 13:12 AST 32 U/L (14-36) 06/07/19 13:12 ALT 29 U/L (<35) 06/07/19 13:12 Alkaline Phosphatase 75 U/L (38-126) 06/07/19 13:12 Total Protein 7.3 g/dL (6.3-8.2) 06/07/19 13:12 Albumin 4.1 g/dL (3.5-5.0) 06/07/19 13:12 Lipase 58.1 U/L (23-300) 06/07/19 13:12 Urine Color YELLOW 06/07/19 12:00 Urine Appearance CLOUDY 06/07/19 12:00 Urine pH 6.0 (5.0-9.0) 06/07/19 12:00 Ur Specific [place] 1.011 06/07/19 12:00 Urine Protein 30 mg/dL (NEGATIVE) H 06/07/19 12:00 Urine Glucose (UA) NEGATIVE mg/dL (NEGATIVE) 06/07/19 12:00 Urine Ketones NEGATIVE mg/dL (NEGATIVE) 06/07/19 12:00 Urine Blood MODERATE (NEGATIVE) H 06/07/19 12:00 Urine Nitrite NEGATIVE (NEGATIVE) 06/07/19 12:00 Urine Bilirubin NEGATIVE (NEGATIVE) 06/07/19 12:00 Urine Urobilinogen NEGATIVE mg/dL (<2.0) 06/07/19 12:00 Ur Leukocyte Esterase MODERATE (NEGATIVE) H 06/07/19 12:00 Urine WBC (Auto) 143 /HPF 06/07/19 12:00 Urine RBC (Auto) 18 /HPF 06/07/19 12:00 Squamous Epi Cells Auto 1 /HPF 06/07/19 12:00 Urine Mucus (Auto) RARE /LPF 06/07/19 12:00 Urine Ascorbic Acid NEGATIVE (NEGATIVE) 06/07/19 12:00 Urine HCG, Qual NEGATIVE (NEGATIVE) 06/07/19 12:00 Impressions: Abdomen/Pelvis CT 06/07/19 00:00 IMPRESSION: 1. Small bowel obstruction at the distal small bowel surgical anastomosis. No perforation or peritoneal abscess. 2. Appendix is normal. 3. 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 No hydronephrosis. 4. Left ovarian teratoma unchanged. Abdomen X-Ray 06/07/19 11:54 IMPRESSION: No evidence of intestinal obstruction or other acute process. Plan Time Spent: Greater than 30 Minutes Stroke Is this a Stroke Patient?: No Acute Heart Failure - Is this a Heart Failure Patient?: No
== END 2019-06-09 15:52 | disposition home or self-care (01) ==
LOC: ER 11:13 → EH 17:16 → INTOOBSV 17:16 → 4N 21:54
PROVIDERS: ADMIT Internal Medicine; ATTEND Internal Medicine
DX: K91.31 Postprocedural partial intestinal obstruction (principal); Y83.2 Surgical operation with anastomosis, bypass or graft as the cause of abnormal reaction of the patient, or of later complication, without mention of misadventure at the time of the procedure; D72.829 Elevated white blood cell count, unspecified; Q05.7 Lumbar spina bifida without hydrocephalus; D27.1 Benign neoplasm of left ovary; Z87.440 Personal history of urinary (tract) infections; Z98.890 Other specified postprocedural states; Z91.040 Latex allergy status; Z91.09 Other allergy status, other than to drugs and biological substances; Z90.49 Acquired absence of other specified parts of digestive tract
CPT/HCPCS: 99285; 96361; 96374; 96375; 36415 ×2; 83690; 85025; 85027; 81025; 80048; 80053; 81001; 74019; 74177; J1885; J2270; J2405; J7030 ×3; S0028 ×3; G0378

== ENCOUNTER 2019-08-20 07:35 | Emergency (ER) | payer MEDICAID ==
--- NOTE | 2019-08-20 08:10 | ER Document Report ---
ED GI/ - General Chief Complaint: Abdominal Pain Stated Complaint: ABDOMINAL PAIN Time Seen by Provider: 08/20/19 08:03 Primary Care Provider: ERIC PETERSON MD [Primary Care Provider] - Follow up as needed Notes: CHIEF COMPLAINT: Pelvic pain today HPI: 19-year-old female presenting to the emergency department complaining of onset of pelvic pain around 1 AM this morning. Patient states she believes she might be constipated, states she just recently found out she was and is approximately 6 weeks and 6 days by dates. Denies vaginal bleeding or discharge. States the pain is across the entire pelvic region. Denies back pain. Denies dysuria. Has not yet seen EXECUTIVE RECRUITER for this ROS: See HPI - all other systems were reviewed and are otherwise negative Constitutional: no fever or recent illness Eyes: no drainage, no blurred vision ENT: no runny nose, no sore throat Cardiovascular: no chest pain Resp: no SOB, no cough GI: no vomiting, no diarrhea, positive abdominal pain : no dysuria, no vaginal discharge Integumentary: no rash Allergy: no hives Musculoskeletal: no extremity pain or swelling Neurological: no numbness/tingling, no weakness MEDICATIONS: I agree with the patient medications as charted by the RN. ALLERGIES: I agree with the allergies as charted by the RN. PAST MEDICAL HISTORY/PAST SURGICAL HISTORY: Reviewed and agree as charted by RN. SOCIAL HISTORY: Reviewed and agree as charted by RN. FAMILY HISTORY: No significant familial comorbid conditions directly related to patient complaint EXAM: Reviewed vital signs as charted by RN. CONSTITUTIONAL: Alert and oriented and responds appropriately to questions. Well-appearing; well-nourished HEAD: Normocephalic; atraumatic EYES: PERRL; Conjunctivae clear, sclerae non-icteric ENT: normal nose; no rhinorrhea; moist mucous membranes; pharynx without lesions noted NECK: Supple without meningismus; non-tender; no cervical lymphadenopathy, no masses CARD: RRR; no murmurs, no clicks, no rubs, no gallops; symmetric distal pulses RESP: Normal chest excursion without splinting or tachypnea; breath sounds clear and equal bilaterally; no wheezes, no rhonchi, no rales ABD/GI: Normal bowel sounds; non-distended; soft, mild generalized nonfocal tenderness across the lower abdomen on palpation, no rebound, no guarding; no palpable organomegaly or masses : Female nurse brand marketing coordinator present. External genitalia normal. No skin lesions noted. Pelvic Exam: No active bleeding. Small amount of a thick white vaginal discharge is noted. Cervix appears normal, cervix is high anterior, cervix is closed. No CMT. No lesions or masses. Uterus mildly enlarged and non tender. Right/Left adnexa normal size and non tender. BACK: The back appears normal and is non-tender to palpation, there is no CVA tenderness EXT: Normal ROM in all joints; non-tender to palpation; no cyanosis, no effusions, no edema SKIN: Normal color for age and race; warm; dry; good turgor; no acute lesions noted NEURO: Moves all extremities equally; Motor and sensory function intact PSYCH: The patient's mood and manner are appropriate. Grooming and personal hygiene are appropriate. MDM: 19-year-old female presenting with pelvic pain in the setting of . Will obtain screening labs, pelvic exam, ultrasound to evaluate for ectopic TRAVEL OUTSIDE OF THE [place] IN LAST 30 DAYS: No - Related Data Allergies/Adverse Reactions: sulfamethoxazole [From Septra] Allergy (Unknown, Verified 11/24/18 10:07) trimethoprim [From Septra] Allergy (Unknown, Verified 11/24/18 10:07) latex [Latex] Allergy (Verified 11/24/18 10:07) petrolatum,white [From Petroleum Jelly] Allergy (Verified 11/24/18 10:07) Home Medications: vitamins Past Medical History - Social History Smoking Status: Never Smoker Chew tobacco use (# tins/day): No Frequency of alcohol use: None Drug Abuse: None Family History: Hypertension Patient has suicidal ideation: No Patient has homicidal ideation: No - Past Medical History Cardiac Medical History: Reports: Hx Hypertension Renal/ Medical History: Denies: Hx Peritoneal Dialysis Musculoskeletal Medical History: Reports Hx Musculoskeletal Trauma Past Surgical History: Reports: Hx Abdominal Surgery - bowel obs umbilical hernia, Hx Herniorrhaphy, Hx Orthopedic Surgery, Hx Urinary Tract Surgery, Other - bowel resection, bladder expansion - Immunizations Immunizations up to date: Yes Hx Diphtheria, Pertussis, Tetanus Vaccination: Yes Physical Exam - Vital signs Vitals: Temp Pulse Resp BP Pulse Ox 98.6 F 93 16 97/68 L 100 08/20/19 07:39 08/20/19 07:39 08/20/19 07:39 08/20/19 07:39 08/20/19 07:39 Course - Re-evaluation Re-evalutation: 08/20/19 10:23 Patient appears to have a subchorionic hemorrhage her blood type is O+. There was no active bleeding on exam, will discuss threatened miscarriage with patient she also appears to have UTI and vaginitis will place on Macrobid and Flagyl - Vital Signs Vital signs: Temp Pulse Resp BP Pulse Ox 98.6 F 93 16 97/68 L 100 08/20/19 07:39 08/20/19 07:39 08/20/19 07:39 08/20/19 07:39 08/20/19 07:39 - Laboratory Result Diagrams: 08/20/19 08:25 08/20/19 08:25 Laboratory results interpreted by me: 08/20/19 08/20/19 08/20/19 08:10 08:25 08:25 WBC 15.4 H Lymph % (Auto) 7.1 L Absolute Neuts (auto) 13.8 H Seg Neutrophils % 89.9 H Sodium 134.4 L Creatinine 0.40 L Beta HCG, Quant 887535.00 H Urine Blood SMALL H Urine Nitrite POSITIVE H Discharge - Discharge Clinical Impression: Bacterial vaginitis Pelvic pain affecting Qualifiers: Trimester: first trimester Qualified Code(s): O26.891 - Other specified related conditions, first trimester; R10.2 - Pelvic and perineal pain Urinary tract infection Qualifiers: Urinary tract infection type: acute cystitis Hematuria presence: without hematuria Qualified Code(s): N30.00 - Acute cystitis without hematuria Condition: Stable Disposition: HOME, SELF-CARE Additional Instructions: 1. follow up with OB for repeat Beta-HCG blood test in 3-5 days 2. follow up with OB for further evaluation and treatment, call for appt. 3. return to the ED for any worsening/onset of abdominal pain, vomiting or vaginal bleeding where you are saturating > 1 pad per hour 4. It was noted that you have both a urinary infection and a bacterial vaginal infection take the antibiotics as prescribed return for worsening pain or problems Prescriptions: Metronidazole [Flagyl 500 mg Tablet] 500 mg PO BID #14 tablet Nitrofurantoin Monohyd/M-Cryst [Macrobid 100 mg Capsule] 100 mg PO BID #14 cap Referrals: ERIC PETERSON MD [Primary Care Provider] - Follow up as needed RAY NAGEL MD [ACTIVE STAFF] - Follow up as needed
[2019-08-20 08:48] LABS: ABSOLUTE LYMPHOCYTES (AUTO) 1.1 10^3/uL (0.5-4.7); ABSOLUTE MONOCYTES (AUTO) 0.5 10^3/uL (0.1-1.4); ABSOLUTE NEUT (AUTO) 13.8 10^3/uL (1.7-8.2); HEMATOCRIT 38.3 % (36.0-47.0); HEMOGLOBIN 12.9 g/dL (12.0-15.5); LYMPHOCYTES % (AUTO) 7.1 % (13-45); MEAN CORPUSCULAR HEMOGLOBIN 30.6 pg (27.0-33.4); MEAN CORPUSCULAR HGB CONC 33.7 g/dL (32.0-36.0); MEAN CORPUSCULAR VOLUME 91 fl (80-97); PLATELET COUNT 378 10^3/uL (150-450); RED BLOOD COUNT 4.22 10^6/uL (3.72-5.28); RED CELL DISTRIBUTION WIDTH 13.6 % (11.5-14.0); SEGMENTED NEUTROPHILS % (AUTO) 89.9 % (42-78); TOTAL CELLS COUNTED % (AUTO) 100 %; WHITE BLOOD COUNT 15.4 10^3/uL (4.0-10.5)
[2019-08-20 08:50] LABS: APPEARANCE,URINE CLOUDY; BILIRUBIN,URINE NEGATIVE (NEGATIVE); CALCIUM OXALATE CRYSTALS,URINE RARE /HPF; COLOR,URINE YELLOW; GLUCOSE, URINE NEGATIVE (NEGATIVE); KETONES,URINE NEGATIVE (NEGATIVE); LEUKOCYTE ESTERASE,URINE NEGATIVE (NEGATIVE); NITRITE,URINE POSITIVE (NEGATIVE); PROTEIN,URINE NEGATIVE (NEGATIVE); URINE SPECIFIC GRAVITY 1.013; UROBILINOGEN,URINE NEGATIVE mg/dL (<2.0)
[2019-08-20 08:58] LABS: T.VAGINALIS (WET MOUNT) NO TRICHOMONAS SEEN; WBCS (WET MOUNT) 3+ WBCS SEEN; YEAST (WET MOUNT) NO YEAST SEEN
[2019-08-20 08:59] LABS: BACTERIA (WET MOUNT) 4+ BACTERIA SEEN; EPITHELIALS (WET MOUNT) 4+ EPITHELIALS SEEN; RBCS (WET MOUNT) 1+ RBCS SEEN
--- NOTE | 2019-08-20 10:13 | RADIOLOGY REPORT (SQ) ---
EXAM DESCRIPTION: U/S OB TRANSVAG W/DOPPLER IMAGES COMPLETED DATE/TIME: 08/20/2019 9:44 am REASON FOR STUDY: pelvic pain, COMPARISON: None. TECHNIQUE: Transvaginal static and realtime grayscale images acquired of the pelvis. Additional kirit cted spectral and color Doppler images recorded. All images stored on PACs. bHCG: Pending. CLINICAL DATES: LMP 07/03/2019. EGA based on LMP 6 weeks 6 days. DOMITILA based on LMP 04/08/2020. LIMITATIONS: None. FINDINGS: FETUS: Single Living intrauterine . ULTRASOUND EGA: 7 weeks 3 days. ULTRASOUND DOMITILA: 04/04/2020. CRL: 1.2 cm. FHR: 155 beats per minute. SURVEY: Too early to assess. AMNIOTIC FLUID: Too early to assess. PLACENTA: Too early to assess. SUBCHORIONIC BLEED: Yes. SIZE OF SUBCHORIONIC BLEED: 9 x 12 x 6 mm. UTERUS: The uterus measures 10 x 6.6 x 7.5 cm. There is an intrauterine gestational sac that contain s an embryo and yolk sac; the yolk sac measures 5 mm. CERVICAL LENGTH: 2.4 cm. Closed. RIGHT ADNEXA: The right ovary measures 4.3 x 2.1 x 1.7 cm and on Doppler there is intact arterial inf low and venous outflow within the ovarian stroma. There is no adnexal mass. LEFT ADNEXA: Unable to visualize the left ovary. There is no adnexal mass. FREE FLUID: There is a trace amount of free fluid in the cul de sac. OTHER: No other finding. IMPRESSION: LIVE INTRAUTERINE . EGA 6 WEEKS 6 DAYS BASED ON LMP WITH CONCORDANT BIOMETRIC PARAMETERS. SUBCHRONIC HEMORRHAGE THAT MEASURES 9 X 12 X 6 MM. NONVISUALIZATION OF THE LEFT OVARY. THERE IS NO ADNEXAL MASS. Trimester of : First trimester - 0 to 13 weeks. TECHNICAL DOCUMENTATION: JOB ID: [id number] [employer]- All Rights Reserved rev-09/19 Reading location - IP/workstation name: [email or web address]
[2019-08-20 10:20] LABS: CHLAM PCR NOT DETECTED (NOT DETECT)
[2019-08-20 10:20] LABS: ALBUMIN 4.2 g/dL (3.5-5.0); ALKALINE PHOSPHATASE 69 U/L (38-126); ANION GAP 9 (5-19); ASPARTATE AMINO TRANSFERASE 26 U/L (14-36); BLOOD UREA NITROGEN 13 mg/dL (7-20); CALCIUM 9.4 mg/dL (8.4-10.2); CARBON DIOXIDE 22 mmol/L (22-30); CHLORIDE 103 mmol/L (98-107); GLUCOSE 104 mg/dL (75-110); POTASSIUM 4.4 mmol/L (3.6-5.0)
[2019-08-20 10:21] LABS: BILIRUBIN,TOTAL 0.4 mg/dL (0.2-1.3); TOTAL PROTEIN 7.3 g/dL (6.3-8.2)
[2019-08-20 10:47] VITALS: BP 110/69
== END 2019-08-20 10:47 | disposition home or self-care (01) ==
LOC: ER 07:35
DX: O23.591 Infection of other part of genital tract in pregnancy, first trimester (principal); B96.89 Other specified bacterial agents as the cause of diseases classified elsewhere; O23.11 Infections of bladder in pregnancy, first trimester; O26.891 Other specified pregnancy related conditions, first trimester; R10.2 Pelvic and perineal pain; Z3A.01 Less than 8 weeks gestation of pregnancy
CPT/HCPCS: 36415; 76817; 80053; 81001; 83690; 84702; 85025; 86900; 86901; 87210; 87491; 87591; 93976; 99284

== ENCOUNTER 2019-09-04 16:31 | Emergency (ER) | payer MEDICAID ==
[2019-09-04] MEDS ORDERED: NORMAL SALINE 1000 ML 1,000 ML IV ONE (16:52)
--- NOTE | 2019-09-04 16:55 | ER Document Report ---
ED Medical Screen (RME) - General Chief Complaint: Abdominal Pain Stated Complaint: ABDOMINAL PAIN/LEFT SIDE Time Seen by Provider: 09/04/19 16:46 Primary Care Provider: ERIC PETERSON MD [Primary Care Provider] - Follow up as needed Mode of Arrival: Ambulatory Information source: Patient Notes: 19-year-old female presented to ED for left lower abdominal pain since yesterday. She states she is 9 weeks she has had a previous ultrasound that showed she did have an intrauterine . Patient states she has not had a bowel movement since yesterday but she did have one yesterday. She states she has not had any nausea vomiting today but she has been having nausea and vomiting. She states she does have a history of spina bifida with surgery to close the opening. She is also had a umbilical hernia surgery and a bladder augmentation surgery. The vaginal bleeding at this time. She denies smoking drinking or using of any illicit drugs. I have greeted and performed a rapid initial assessment of this patient. A comprehensive ED assessment and evaluation of the patient, analysis of test results and completion of medical decision making process will be conducted by an additional ED providers. TRAVEL OUTSIDE OF THE [place] IN LAST 30 DAYS: No - Related Data Allergies/Adverse Reactions: sulfamethoxazole [From Septra] Allergy (Unknown, Verified 11/24/18 10:07) trimethoprim [From Septra] Allergy (Unknown, Verified 11/24/18 10:07) latex [Latex] Allergy (Verified 11/24/18 10:07) petrolatum,white [From Petroleum Jelly] Allergy (Verified 11/24/18 10:07) Home Medications: pernatal Past Medical History - Past Medical History Cardiac Medical History: Reports: Hx Hypertension Renal/ Medical History: Denies: Hx Peritoneal Dialysis Musculoskeltal Medical History: Reports Hx Musculoskeletal Trauma Past Surgical History: Reports: Hx Abdominal Surgery - bowel obs umbilical hernia, Hx Herniorrhaphy, Hx Orthopedic Surgery, Hx Urinary Tract Surgery, Other - bowel resection, bladder expansion - Immunizations Immunizations up to date: Yes Hx Diphtheria, Pertussis, Tetanus Vaccination: Yes Physical Exam - Vital signs Vitals: Temp Pulse Resp BP Pulse Ox 98 F 106 H 17 126/81 H 98 09/04/19 16:37 09/04/19 16:37 09/04/19 16:37 09/04/19 16:37 09/04/19 16:37 Course - Vital Signs Vital signs: Temp Pulse Resp BP Pulse Ox 98.0 F 106 H 17 126/81 H 98 09/04/19 16:47 09/04/19 16:37 09/04/19 16:37 09/04/19 16:37 09/04/19 16:37 Doctor's Discharge - Discharge Referrals: ERIC PETERSON MD [Primary Care Provider] - Follow up as needed
[2019-09-04 17:27] LABS: APPEARANCE,URINE CLOUDY; BILIRUBIN,URINE NEGATIVE (NEGATIVE); COLOR,URINE YELLOW; GLUCOSE, URINE NEGATIVE (NEGATIVE); KETONES,URINE 20 mg/dL (NEGATIVE); PROTEIN,URINE NEGATIVE (NEGATIVE); URINE SPECIFIC GRAVITY 1.016; UROBILINOGEN,URINE NEGATIVE mg/dL (<2.0)
[2019-09-04 17:27] LABS: ABSOLUTE LYMPHOCYTES (AUTO) 2.3 10^3/uL (0.5-4.7); ABSOLUTE MONOCYTES (AUTO) 0.8 10^3/uL (0.1-1.4); ABSOLUTE NEUT (AUTO) 10.2 10^3/uL (1.7-8.2); BASOPHILS % (AUTO) 0.3 % (0-2); EOSINOPHILS % (AUTO) 0.3 % (0-6); HEMATOCRIT 41.8 % (36.0-47.0); LYMPHOCYTES % (AUTO) 16.9 % (13-45); MEAN CORPUSCULAR HEMOGLOBIN 30.2 pg (27.0-33.4); MEAN CORPUSCULAR HGB CONC 33.5 g/dL (32.0-36.0); MEAN CORPUSCULAR VOLUME 90 fl (80-97); MONOCYTES % (AUTO) 6.3 % (3-13); PLATELET COUNT 382 10^3/uL (150-450); RED BLOOD COUNT 4.63 10^6/uL (3.72-5.28); RED CELL DISTRIBUTION WIDTH 13.6 % (11.5-14.0); SEGMENTED NEUTROPHILS % (AUTO) 76.2 % (42-78); TOTAL CELLS COUNTED % (AUTO) 100 %; WHITE BLOOD COUNT 13.4 10^3/uL (4.0-10.5)
[2019-09-04 17:40] LABS: ALBUMIN 4.2 g/dL (3.5-5.0); ALKALINE PHOSPHATASE 59 U/L (38-126); ANION GAP 8 (5-19); ASPARTATE AMINO TRANSFERASE 22 U/L (14-36); BILIRUBIN,TOTAL 0.4 mg/dL (0.2-1.3); BLOOD UREA NITROGEN 10 mg/dL (7-20); CALCIUM 9.6 mg/dL (8.4-10.2); CARBON DIOXIDE 23 mmol/L (22-30); CHLORIDE 103 mmol/L (98-107); GLUCOSE 90 mg/dL (75-110); POTASSIUM 3.9 mmol/L (3.6-5.0); TOTAL PROTEIN 7.2 g/dL (6.3-8.2)
[2019-09-04] MEDS ORDERED: CEFTRIAXONE 1 GM/D5W RTU 1 GM/50 ML RTUPB IV ONE (18:08)
--- NOTE | 2019-09-04 18:58 | ER Document Report ---
ED GI/ - General Chief Complaint: Abdominal Pain Stated Complaint: ABDOMINAL PAIN/LEFT SIDE Time Seen by Provider: 09/04/19 16:46 Primary Care Provider: ERIC PETERSON MD [Primary Care Provider] - Follow up as needed Mode of Arrival: Ambulatory Information source: Patient Notes: Patient presents 9 weeks G1, P0. Patient reports left lower pelvic pain that started yesterday. Patient describes pain as sharp in nature. Patient denies any nausea or vomiting. Patient does have a history of spina bifida with surgical repair and does do self-catheterization. TRAVEL OUTSIDE OF THE [place] IN LAST 30 DAYS: No - HPI Patient complains to provider of: Pelvic pain, . No: Vaginal bleeding Onset: Yesterday Timing/Duration: Gradual Quality of pain: Sharp Pain Level: 3 Context: Location: LLQ Vaginal bleeding (Compared to normal period): None Menstrual period history: Associated symptoms: denies: Diarrhea, Dysuria, Fever, Nausea, Urinary he sitancy, Urinary frequency, Urinary retention, Urinary urgency, Vaginal discharge, Vomiting Exacerbated by: Denies Relieved by: Denies Similar symptoms previously: No Recently seen / treated by doctor: No - Related Data Allergies/Adverse Reactions: sulfamethoxazole [From Septra] Allergy (Unknown, Verified 11/24/18 10:07) trimethoprim [From Septra] Allergy (Unknown, Verified 11/24/18 10:07) latex [Latex] Allergy (Verified 11/24/18 10:07) petrolatum,white [From Petroleum Jelly] Allergy (Verified 11/24/18 10:07) Home Medications: pernatal Past Medical History - General Information source: Patient - Social History Smoking Status: Never Smoker Frequency of alcohol use: None Drug Abuse: None Family History: Hypertension Patient has homicidal ideation: No - Past Medical History Cardiac Medical History: Reports: Hx Hypertension Neurological Medical History: Reports: Other - Spina bifida Renal/ Medical History: Denies: Hx Peritoneal Dialysis Musculoskeletal Medical History: Reports Hx Musculoskeletal Trauma Past Surgical History: Reports: Hx Abdominal Surgery - bowel obs umbilical hernia, Hx Herniorrhaphy, Hx Neurologic Surgery, Hx Orthopedic Surgery, Hx Urinary Tract Surgery, Other - bowel resection, bladder expansion - Immunizations Immunizations up to date: Yes Hx Diphtheria, Pertussis, Tetanus Vaccination: Yes Review of Systems - Review of Systems Constitutional: No symptoms reported. denies: Fever EENT: No symptoms reported Cardiovascular: No symptoms reported Respiratory: No symptoms reported. denies: Cough Gastrointestinal: Abdominal pain. denies: Nausea, Vomiting Genitourinary: No symptoms reported, Other - Self caths. denies: Dysuria Female Genitourinary: . denies: Vaginal discharge, Vaginal bleeding Musculoskeletal: No symptoms reported. denies: Back pain Skin: No symptoms reported Hematologic/Lymphatic: No symptoms reported Neurological/Psychological: No symptoms reported Physical Exam - Vital signs Vitals: Temp Pulse Resp BP Pulse Ox 98 F 106 H 17 126/81 H 98 09/04/19 16:37 09/04/19 16:37 09/04/19 16:37 09/04/19 16:37 09/04/19 16:37 - General General appearance: Appears well, Alert In distress: None - HEENT Head: Normocephalic, Atraumatic Eyes: Normal Conjunctiva: Normal Nasal: Normal Mouth/Lips: Normal Mucous membranes: Normal Neck: Normal, Supple. No: Lymphadenopathy - Respiratory Respiratory status: No respiratory distress Chest status: Nontender Breath sounds: Normal. No: Rales, Rhonchi, Stridor, Wheezing Chest palpation: Normal - Cardiovascular Rhythm: Regular Heart sounds: S1 appreciated, S2 appreciated - Abdominal Inspection: Normal Distension: No distension Bowel sounds: Normal Tenderness: Tender - Left lower pelvic Organomegaly: No organomegaly - Back Back: Normal, Nontender. No: CVA tenderness - Extremities General upper extremity: Normal inspection, Normal strength General lower extremity: Normal inspection, Normal strength - Neurological Neuro grossly intact: Yes Cognition: Normal Rachel Coma Scale Eye Opening: Spontaneous Rachel Coma Scale Verbal: Oriented Rachel Coma Scale Motor: Obeys Commands [place] Coma Scale Total: 15 - Psychological Associated symptoms: Normal affect, Normal mood - Skin Skin Temperature: Warm Skin Moisture: Dry Skin Color: Normal Course - Vital Signs Vital signs: Temp Pulse Resp BP Pulse Ox 98.0 F 106 H 17 126/81 H 98 09/04/19 16:47 09/04/19 16:37 09/04/19 16:37 09/04/19 16:37 09/04/19 16:37 - Laboratory Result Diagrams: 09/04/19 17:10 09/04/19 17:10 Laboratory results interpreted by me: 09/04/19 09/04/19 09/04/19 17:06 17:10 17:10 WBC 13.4 H Absolute Neuts (auto) 10.2 H Sodium 134.1 L Creatinine 0.43 L Urine Ketones 20 H Leukocyte Esterase Rfl MODERATE H Urine Ascorbic Acid 40 H Discharge - Discharge Clinical Impression: Pelvic pain affecting Qualifiers: Trimester: first trimester Qualified Code(s): O26.891 - Other specified related conditions, first trimester UTI (urinary tract infection) Qualifiers: Urinary tract infection type: site unspecified Hematuria presence: without hematuria Qualified Code(s): N39.0 - Urinary tract infection, site not specified Condition: Stable Disposition: HOME, SELF-CARE Instructions: Abdominal Pain ([facility]), Urinary Tract Infection ([facility]), Cephalexin ([facility]) Additional Instructions: Return immediately for any new or worsening symptoms Followup with your primary care provider, call tomorrow to make a followup appointment Urine culture is pending, we will call if you need any different treatment Prescriptions: Cephalexin Monohydrate [Keflex 500 mg Capsule] 500 mg PO BID 7 Days #14 capsule Referrals: ERIC PETERSON MD [Primary Care Provider] - Follow up as needed [facility] [Provider Group] - 09/06/19
--- NOTE | 2019-09-04 19:41 | RADIOLOGY REPORT (SQ) ---
EXAM DESCRIPTION: U/S OB TRANSVAGINAL W/O DOP IMAGES COMPLETED DATE/TIME: 09/04/2019 4:30 pm REASON FOR STUDY: LLQ pain. . LMP 07/03/2019, estimated gestational age 9 weeks 0 days. COMPARISON: 08/20/2019 TECHNIQUE: Transabdominal static and realtime grayscale images acquired of the pelvis. Additional se lected spectral and color Doppler images recorded. All images stored on PACs. bHCG: Not available. CLINICAL DATES: 9 weeks 0 days based on LMP LIMITATIONS: None. FINDINGS: FETUS: Single Living intrauterine . ULTRASOUND EGA: 10 weeks 1 day ULTRASOUND DOMITILA: 03/31/2020 EFW: Not applicable less than 20 weeks. CRL: 3.22 cm FHR: 165 beats per minute. SURVEY: No visualized anomalies. AMNIOTIC FLUID: Adequate amount. PLACENTA: Not yet developed due to early gestation. SUBCHORIONIC BLEED: None SIZE OF BLEED: Not applicable. UTERUS: No masses. No anomalies. CERVICAL LENGTH: 3.5 cm Closed. RIGHT ADNEXA: Normal ovary with normal vascular flow. No adnexal free fluid. No adnexal masses. Measures 1.8 x 3.1 x 2.5 cm LEFT ADNEXA: Ovary not visualized. No adnexal free fluid. No adnexal masses. FREE FLUID: None. OTHER: No other significant finding. IMPRESSION: Single live intrauterine . EGA 10 weeks 1 day Trimester of : First trimester - 0 to 13 weeks. TECHNICAL DOCUMENTATION: JOB ID: [id number] [employer]- All Rights Reserved rev Reading location - IP/workstation name: [email or web address]
[2019-09-04 20:08] VITALS: BP 108/63
== END 2019-09-04 20:08 | disposition home or self-care (01) ==
LOC: ER 16:31
DX: O23.41 Unspecified infection of urinary tract in pregnancy, first trimester (principal); O26.91 Pregnancy related conditions, unspecified, first trimester; R10.32 Left lower quadrant pain; R10.2 Pelvic and perineal pain; Z3A.09 9 weeks gestation of pregnancy
CPT/HCPCS: 99284; 96361; 96365; 36415; 87086; 85025; 87088; 80053; 81001; 87186; 76817; J7030; J0696

== ENCOUNTER 2019-11-05 21:55 | Inpatient (IN) | payer OTHER, MEDICAID ==
[2019-11-05] MEDS ORDERED: ACETAMINOPHEN 325 MG TABLET PO ONE (23:56)
[2019-11-05] MEDS ORDERED: NORMAL SALINE 1000 ML 1,000 ML IV ONE (23:57)
[2019-11-05] MEDS ORDERED: CEFTRIAXONE 1 GM/D5W RTU 1 GM/50 ML RTUPB IV ONE (23:57)
--- NOTE | 2019-11-05 23:59 | ER Document Report ---
ED Medical Screen (RME) - General Stated Complaint: URINARY PROBLEM/BACK PAIN Time Seen by Provider: 11/05/19 23:56 Primary Care Provider: ERIC PETERSON MD [Primary Care Provider] - Follow up as needed Notes: HPI: 19-year-old female who is a prima at 18 weeks gestation follows with [facility] presenting for onset of fever and bilateral back pain today. Patient has a history of spina bifida and self caths at home, states there was a strong odor to the urine today and she believes she has a UTI. Patient states she has had an ultrasound for her denies vaginal discharge or bleeding denies abdominal or pelvic pain PHYSICAL EXAMINATION: Gravid uterus is palpable. Very mild bilateral CVA tenderness on exam, moderately tachycardic with significant fever in triage I have greeted and performed a rapid initial assessment of this patient. A comprehensive ED assessment and evaluation of the patient, analysis of test results and completion of medical decision making process will be conducted by an additional ED providers. TRAVEL OUTSIDE OF THE [place] IN LAST 30 DAYS: No - Related Data Allergies/Adverse Reactions: sulfamethoxazole [From Septra] Allergy (Unknown, Verified 11/24/18 10:07) trimethoprim [From Septra] Allergy (Unknown, Verified 11/24/18 10:07) latex [Latex] Allergy (Verified 11/24/18 10:07) petrolatum,white [From Petroleum Jelly] Allergy (Verified 11/24/18 10:07) Past Medical History - Past Medical History Cardiac Medical History: Reports: Hx Hypertension Renal/ Medical History: Denies: Hx Peritoneal Dialysis Musculoskeltal Medical History: Reports Hx Musculoskeletal Trauma Past Surgical History: Reports: Hx Abdominal Surgery - bowel obs umbilical hernia, Hx Herniorrhaphy, Hx Neurologic Surgery, Hx Orthopedic Surgery, Hx Urinary Tract Surgery, Other - bowel resection, bladder expansion - Immunizations Immunizations up to date: Yes Hx Diphtheria, Pertussis, Tetanus Vaccination: Yes Physical Exam - Vital signs Vitals: Temp Pulse Resp BP Pulse Ox 103.2 F H 136 H 18 121/68 97 11/05/19 22:45 11/05/19 22:45 11/05/19 22:45 11/05/19 22:45 11/05/19 22:45 Course - Vital Signs Vital signs: Temp Pulse Resp BP Pulse Ox 103.2 F H 136 H 18 121/68 97 11/05/19 22:45 11/05/19 22:45 11/05/19 22:45 11/05/19 22:45 11/05/19 22:45 Doctor's Discharge - Discharge Referrals: ERIC PETERSON MD [Primary Care Provider] - Follow up as needed
[2019-11-06 02:12] LABS: APPEARANCE,URINE CLOUDY; BILIRUBIN,URINE NEGATIVE (NEGATIVE); COLOR,URINE YELLOW; GLUCOSE, URINE NEGATIVE (NEGATIVE); KETONES,URINE TRACE mg/dL (NEGATIVE); LEUKOCYTE ESTERASE,URINE MODERATE (NEGATIVE); NITRITE,URINE NEGATIVE (NEGATIVE); PROTEIN,URINE 30 mg/dL (NEGATIVE); URINE SPECIFIC GRAVITY 1.009; UROBILINOGEN,URINE NEGATIVE mg/dL (<2.0)
[2019-11-06 03:03] LABS: ALBUMIN 3.6 g/dL (3.5-5.0); ALKALINE PHOSPHATASE 63 U/L (38-126); ANION GAP 9 (5-19); ASPARTATE AMINO TRANSFERASE 22 U/L (14-36); BILIRUBIN,TOTAL 0.7 mg/dL (0.2-1.3); BLOOD UREA NITROGEN 12 mg/dL (7-20); CALCIUM 8.9 mg/dL (8.4-10.2); CARBON DIOXIDE 21 mmol/L (22-30); CHLORIDE 101 mmol/L (98-107); GLUCOSE 104 mg/dL (75-110); POTASSIUM 3.4 mmol/L (3.6-5.0); TOTAL PROTEIN 6.6 g/dL (6.3-8.2)
[2019-11-06] MEDS ORDERED: NORMAL SALINE 1000 ML 1,000 ML IV ONE (03:06)
[2019-11-06 03:11] LABS: HEMATOCRIT 34.6 % (36.0-47.0); HEMOGLOBIN 11.7 g/dL (12.0-15.5); MEAN CORPUSCULAR HEMOGLOBIN 31.2 pg (27.0-33.4); MEAN CORPUSCULAR HGB CONC 33.8 g/dL (32.0-36.0); MEAN CORPUSCULAR VOLUME 92 fl (80-97); PLATELET COUNT 252 10^3/uL (150-450); RED BLOOD COUNT 3.75 10^6/uL (3.72-5.28); RED CELL DISTRIBUTION WIDTH 14.3 % (11.5-14.0); WHITE BLOOD COUNT 19.2 10^3/uL (4.0-10.5)
[2019-11-06 03:14] LABS: ANISOCYTOSIS 1+; BAND NEUTROPHILS % (MANUAL) 6 % (3-5); BASOPHILS % (MANUAL) 0 % (0-2); EOSINOPHILS % (MANUAL) 0 % (0-6); LYMPHOCYTES % (MANUAL) 5 % (13-45); MONOCYTES % (MANUAL) 5 % (3-13); PLATELET COMMENT ADEQUATE; POLYCHROMASIA 1+; SEGMENTED NEUTROPHILS % (MAN) 84 % (42-78); TOTAL CELLS COUNTED 100
--- NOTE | 2019-11-06 03:26 | ER Document Report ---
ED Fever - General Chief Complaint: Urinary Problem Stated Complaint: URINARY PROBLEM/BACK PAIN Time Seen by Provider: 11/05/19 23:56 Primary Care Provider: ERIC PETERSON MD [Primary Care Provider] - Follow up as needed Mode of Arrival: Ambulatory Information source: Patient Notes: 19-year-old female patient with history of spina bifida presenting to the emerg ency department with concerns for low back pain bilaterally and fever. Patient reports symptoms started about 18 hours ago. Patient reports that she self catheterizes for her urine and she noted that her urine had a foul smell to it so she felt she might have a urinary tract infection starting. Patient denies any cough, congestion, shortness of breath, diarrhea or exposure to any known COVID-19 positive persons. Patient does report nausea with one episode of vomiting this morning. TRAVEL OUTSIDE OF THE [place] IN LAST 30 DAYS: No - Related Data Allergies/Adverse Reactions: sulfamethoxazole [From Septra] Allergy (Unknown, Verified 11/24/18 10:07) trimethoprim [From Septra] Allergy (Unknown, Verified 11/24/18 10:07) latex [Latex] Allergy (Verified 11/24/18 10:07) petrolatum,white [From Petroleum Jelly] Allergy (Verified 11/24/18 10:07) Home Medications: vitamins Past Medical History - General Information source: Patient - Social History Smoking Status: Never Smoker Frequency of alcohol use: None Drug Abuse: None Family History: Hypertension Patient has homicidal ideation: No - Past Medical History Cardiac Medical History: Reports: Hx Hypertension Renal/ Medical History: Denies: Hx Peritoneal Dialysis Musculoskeletal Medical History: Reports Hx Musculoskeletal Trauma Past Surgical History: Reports: Hx Abdominal Surgery - bowel obs umbilical herni a, Hx Herniorrhaphy, Hx Neurologic Surgery, Hx Orthopedic Surgery, Hx Urinary Tract Surgery, Other - bowel resection, bladder expansion - Immunizations Immunizations up to date: Yes Hx Diphtheria, Pertussis, Tetanus Vaccination: Yes Review of Systems - Review of Systems Constitutional: Chills, Fever EENT: No symptoms reported Cardiovascular: No symptoms reported Respiratory: No symptoms reported Gastrointestinal: Nausea, Vomiting - X1 Genitourinary: Flank pain, Other - Foul smell to urine Female Genitourinary: No symptoms reported Musculoskeletal: No symptoms reported Skin: No symptoms reported Hematologic/Lymphatic: No symptoms reported Neurological/Psychological: No symptoms reported Physical Exam - Vital signs Vitals: Temp Pulse Resp BP Pulse Ox 103.2 F H 136 H 18 121/68 97 11/05/19 22:45 11/05/19 22:45 11/05/19 22:45 11/05/19 22:45 11/05/19 22:45 - Notes Notes: PHYSICAL EXAMINATION: GENERAL: Well-appearing, well-nourished and in no acute distress. HEAD: Atraumatic, normocephalic. EYES: Pupils equal round and reactive to light, extraocular movements intact, conjunctiva are normal. ENT: Nares patent, oropharynx clear without exudates. Moist mucous membranes. NECK: Normal range of motion, supple without lymphadenopathy LUNGS: Breath sounds clear to auscultation bilaterally and equal. No wheezes rales or rhonchi. Tachypneic HEART: Tachycardic ABDOMEN: Soft, nontender, gravid abdomen. No guarding, no rebound. No masses appreciated. Female : CVA tenderness bilaterally Musculoskeletal: Normal range of motion, no pitting or edema. No cyanosis. NEUROLOGICAL: Cranial nerves grossly intact. Normal speech, normal gait. Normal sensory, motor exams PSYCH: Normal mood, normal affect. SKIN: Warm, Dry, normal turgor, no rashes or lesions noted. Course - Re-evaluation Re-evalutation: 11/06/19 04:[address] Dodson, OB on-call. He would like patient sent up to [facility]. - Vital Signs Vital signs: Temp Pulse Resp BP Pulse Ox 98.4 F 132 H 24 H 117/71 100 11/06/19 03:15 11/06/19 03:15 11/06/19 03:15 11/06/19 02:09 11/06/19 03:15 - Laboratory Result Diagrams: 11/06/19 02:25 11/06/19 02:25 Laboratory results interpreted by me: 11/06/19 11/06/19 11/06/19 02:00 02:25 02:25 WBC 19.2 H Hgb 11.7 L Hct 34.6 L RDW 14.3 H Seg Neuts % (Manual) 84 H Band Neutrophils % 6 H Lymphocytes % (Manual) 5 L Abs Neuts (Manual) 17.3 H Sodium 130.9 L Potassium 3.4 L Carbon Dioxide 21 L Urine Protein 30 H Urine Ketones TRACE H Urine Blood SMALL H Ur Leukocyte Esterase MODERATE H Discharge - Discharge Clinical Impression: Pyelonephritis, Tachycardia Leukocytosis Qualifiers: Leukocytosis type: bandemia Qualified Code(s): D72.825 - Bandemia Condition: Stable Disposition: ADMITTED OBSERVATION Admitting Provider: [facility] Unit Admitted: Labor and Delivery Referrals: ERIC PETERSON MD [Primary Care Provider] - Follow up as needed
--- NOTE | 2019-11-06 04:11 | RADIOLOGY REPORT (SQ) ---
EXAM DESCRIPTION: US LIMITED COMPLETED DATE/TME: 11/06/2019 03:20 CLINICAL HISTORY: 19 years Female, eval well being Comparison:Sep 04 2019 TECHNIQUE/LIMITATION: Targeted OB sonogram for requested parameters only. FINDINGS: Single IUP EGA is 19w3d with DOMITILA of 03/29/20 EFW is 298g Cardiac activity: 149-bpm. LVP: 7.3-cm Placenta: Anterior. No demonstrated abruption or previa. (Imaging note: Ultrasound does not detect most cases of abruption and "placental abruption" is considered a clinical diagnosis.) Presentation: Breech. Cervical length: 2.4-cm. Closed appearance. IMPRESSION: Targeted OB sonogram for requested parameters
[2019-11-06] MEDS ORDERED: ACETAMINOPHEN 325 MG TABLET PO ONE (04:28)
[2019-11-06] MEDS ORDERED: ACETAMINOPHEN 325 MG TABLET PO PRN ×2 (05:25→09:12)
--- NOTE | 2019-11-06 05:33 | Admission Physical ---
Datetime Report Generated by CPN: 11/06/2019 05:33 CURRENT ADMISSION Chief Complaint: Other Chief Complaint Other: pyelo Indication for Induction: Not Applicable Admit Impression : Medical Complication Admit Plan: Admit to Unit ALLERGIES Medication Allergies: petrolatum,white (11/24/2018); sulfamethoxazole (11/24/2018); trimethoprim (11/24/2018); latex (11/24/2018) OBSTETRICAL HISTORY EDC: 04/01/2020 00:00 PHYSICAL EXAM General: Normal HEENT: Normal Neurologic: Normal Thyroid: Normal Heart: Normal Lungs: Normal Breast: Deferred Back: Normal Abdomen: Normal Genitourinary Exam: Normal Extremities: Normal DTRs: Normal Pelvic Type: Adequate Physical Exam Comments: CVAT Vital Signs: Reviewed FETUS A EGA: 19.0 Admit Comment: Plan to admit for IV antibiotics. (see ERnote) INFORMED CONSENT Signature: with User ID: [email or web address]
[2019-11-06] MEDS ORDERED: ACETAMINOPHEN 325 MG TABLET ONE (09:01)
[2019-11-06] MEDS ORDERED: IBUPROFEN 800 MG TABLET PO ONE (09:11)
[2019-11-06] MEDS ORDERED: ACETAMINOPHEN 1,000 MG/100 ML RTUPB IV PRN (09:12)
[2019-11-06] MEDS ORDERED: RINGERS SOLUTION,LACTATED 1,000 ML IV PRN ×2 (09:12→12:49)
[2019-11-06] MEDS ORDERED: IBUPROFEN 800 MG TABLET ONE (09:17)
[2019-11-06] MEDS ORDERED: ACETAMINOPHEN 1,000 MG/100 ML RTUPB IV ONE (09:17)
[2019-11-06] MEDS ORDERED: CEFTRIAXONE INJ 1000 MG VIAL ONE (09:57)
[2019-11-06] MEDS ORDERED: CEFTRIAXONE 1 GM/D5W RTU 1 GM/50 ML RTUPB IV SCH ×2 (10:00)
[2019-11-06 10:37] LABS: HEMATOCRIT 29.7 % (36.0-47.0); MEAN CORPUSCULAR HEMOGLOBIN 30.8 pg (27.0-33.4); MEAN CORPUSCULAR HGB CONC 33.6 g/dL (32.0-36.0); MEAN CORPUSCULAR VOLUME 91 fl (80-97); PLATELET COUNT 220 10^3/uL (150-450); RED BLOOD COUNT 3.25 10^6/uL (3.72-5.28); RED CELL DISTRIBUTION WIDTH 14.4 % (11.5-14.0); WHITE BLOOD COUNT 26.5 10^3/uL (4.0-10.5)
[2019-11-06 10:40] LABS: INTERNATIONAL RATION (INR) 1.12; PROTHROMBIN TIME 14.5 SEC (11.4-15.4)
[2019-11-06 10:47] LABS: ALBUMIN 2.8 g/dL (3.5-5.0); ALKALINE PHOSPHATASE 49 U/L (38-126); ANION GAP 8 (5-19); ASPARTATE AMINO TRANSFERASE 19 U/L (14-36); BILIRUBIN,DIRECT 0.1 mg/dL (0.0-0.4); BLOOD UREA NITROGEN 8 mg/dL (7-20); CALCIUM 8.2 mg/dL (8.4-10.2); CARBON DIOXIDE 18 mmol/L (22-30); CHLORIDE 104 mmol/L (98-107); GLUCOSE 99 mg/dL (75-110); TOTAL PROTEIN 5.4 g/dL (6.3-8.2)
[2019-11-06] MEDS ORDERED: POTASSI CL 20 MEQ/50 ML RIDER 20 MEQ/50 ML RTUPB IV ONE (10:52)
[2019-11-06 10:57] LABS: ABSOLUTE LYMPHOCYTES# (MANUAL) 0.8 10^3/uL (0.5-4.7); ABSOLUTE MONOCYTES # (MANUAL) 0.3 10^3/uL (0.1-1.4); BAND NEUTROPHILS % (MANUAL) 3 % (3-5); BASOPHILS % (MANUAL) 0 % (0-2); EOSINOPHILS % (MANUAL) 0 % (0-6); LYMPHOCYTES % (MANUAL) 3 % (13-45); MONOCYTES % (MANUAL) 1 % (3-13); SEGMENTED NEUTROPHILS % (MAN) 93 % (42-78); TOTAL CELLS COUNTED 100
[2019-11-06 10:58] LABS: ANISOCYTOSIS SLIGHT; PLATELET COMMENT ADEQUATE
[2019-11-06 11:12] VITALS: BP 97/55
[2019-11-06] MEDS ORDERED: VANCOMYCIN HCL INJ 1000 MG VIAL IV SCH (11:15)
--- NOTE | 2019-11-06 11:26 | PDOC PROGRESS REPORT ---
Subjective Progress Note for:: 11/06/19 Subjective:: fever, suspected pyelo, maternal tachy, h/o Spina bifida and self cath, denies n/v, denies SCHAEFER, denies cough Reason For Visit: PYELONEPHRITIS,LEUKOCYTOSIS,TACHYCARDIA Physical Exam - Physical Exam Vital Signs: Temp Pulse Resp BP Pulse Ox 99.0 F 117 H 22 H 97/55 L 100 11/06/19 10:49 11/06/19 11:11 11/06/19 10:49 11/06/19 11:11 11/06/19 03:15 Intake & Output 11/05/19 11/06/19 11/07/19 06:59 06:59 06:59 Intake Total 2049 Balance 2049 Weight 57.8 kg General appearance: PRESENT: no acute distress, well-developed, well-nourished Head exam: PRESENT: atraumatic, normocephalic Neck exam: PRESENT: full ROM. ABSENT: carotid bruit, JVD, lymphadenopathy, thyromegaly Respiratory exam: PRESENT: clear to auscultation jakob, symmetrical, unlabored Cardiovascular exam: PRESENT: +S1, +S2, tachycardia. ABSENT: diastolic murmur, rubs, systolic murmur Pulses: PRESENT: normal dorsalis pedis pul, +2 pedal pulses bilateral GI/Abdominal exam: PRESENT: normal bowel sounds, soft. ABSENT: distended, guarding, mass, organolmegaly, rebound, tenderness Rectal exam: PRESENT: deferred Extremities exam: PRESENT: full ROM. ABSENT: calf tenderness, clubbing, pedal edema Musculoskeletal exam: PRESENT: ambulatory Neurological exam: PRESENT: alert, awake, oriented to person, oriented to place, oriented to time, oriented to situation, CN II-XII grossly intact. ABSENT: motor sensory deficit Psychiatric exam: PRESENT: appropriate affect, normal mood. ABSENT: homicidal ideation, suicidal ideation Skin exam: PRESENT: dry, intact, warm. ABSENT: cyanosis, rash Result Laboratory Results: 11/06/19 10:18 11/06/19 10:18 11/06/19 11/06/19 11/06/19 02:00 02:25 02:25 WBC 19.2 H RBC 3.75 Hgb 11.7 L Hct 34.6 L MCV 92 MCH 31.2 MCHC 33.8 RDW 14.3 H Plt Count 252 Seg Neutrophils % Not Reportable Sodium 130.9 L Potassium 3.4 L Chloride 101 Carbon Dioxide 21 L Anion Gap 9 BUN 12 Creatinine 0.54 Est GFR ( Amer) > 60 Glucose 104 Lactic Acid Calcium 8.9 Total Bilirubin 0.7 AST 22 Alkaline Phosphatase 63 Total Protein 6.6 Albumin 3.6 Urine Color YELLOW Urine Appearance CLOUDY Urine pH 7.0 Ur Specific [place] 1.009 Urine Protein 30 H Urine Glucose (UA) NEGATIVE Urine Ketones TRACE H Urine Blood SMALL H Urine Nitrite NEGATIVE Ur Leukocyte Esterase MODERATE H Urine WBC (Auto) 2 Urine RBC (Auto) 0 11/06/19 11/06/19 11/06/19 10:18 10:18 10:18 WBC 26.5 H RBC 3.25 L Hgb 10.0 L Hct 29.7 L MCV 91 MCH 30.8 MCHC 33.6 RDW 14.4 H Plt Count 220 Seg Neutrophils % Not Reportable Sodium 129.5 L Potassium 3.0 L* Chloride 104 Carbon Dioxide 18 L Anion Gap 8 BUN 8 Creatinine 0.50 L Est GFR ( Amer) > 60 Glucose 99 Lactic Acid 1.2 Calcium 8.2 L Total Bilirubin 1.0 AST 19 Alkaline Phosphatase 49 Total Protein 5.4 L Albumin 2.8 L Urine Color Urine Appearance Urine pH Ur Specific [place] Urine Protein Urine Glucose (UA) Urine Ketones Urine Blood Urine Nitrite Ur Leukocyte Esterase Urine WBC (Auto) Urine RBC (Auto) Impressions: Obstetrics Ultrasound 11/06/19 03:20 IMPRESSION: Targeted OB sonogram for requested parameters Assessment & Plan - Diagnosis (1) Sepsis Qualifiers: Sepsis type: sepsis due to unspecified organism Sepsis acute organ dysfunction status: unspecified Qualified Code(s): A41.9 - Sepsis, unspecified organism Is this a current diagnosis for this admission?: Yes Plan: now becoming hypotensive despite 3L of fluid since 0400 Initially fluids decreased to 125ml due to concern with and dev of ARDS with pyelo. Will give 500ml IV bolus and will re-eval and possible another IV bolus if needed. Consult to Hospitalist due to concern for sepsis and with significant tachycardia and may need transfer to tele. EKG in ER wnl except tachy (2) Leukocytosis Qualifiers: Leukocytosis type: bandemia Qualified Code(s): D72.825 - Bandemia Is this a current diagnosis for this admission?: Yes Plan: Currently on Rocephin due to suspected urinary origin. D/w Dr. Rosas and will broaden coverage. Also due to Unknown source of infection with Urine not impressive will consider with COVID and rapid flu now. Febrile and septic. Urine culture and blood culture pending. (3) Tachycardia Is this a current diagnosis for this admission?: Yes Plan: Currently s/o 3 liters of IV fluids. Will give additional fluid bolus due to hypotension and tachy (4) Pyelonephritis Is this a current diagnosis for this admission?: Yes (5) Constipation Qualifiers: Constipation type: unspecified constipation type Qualified Code(s): K59.00 - Constipation, unspecified Is this a current diagnosis for this admission?: Yes Plan: pt reports chronic constipation likely due to comorbidities of spina bifida (7) Spina bifida of lumbar spine Qualifiers: Presence of hydrocephalus: without hydrocephalus Qualified Code(s): Q05.7 - Lumbar spina bifida without hydrocephalus Is this a current diagnosis for this admission?: Yes Plan: 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 (8) Hydronephrosis due to obstruction of ureter Is this a current diagnosis for this admission?: Yes Plan: Significant Hydronephrosis on left. She is only 19wks therefore this in unlikely due to gravid uterus. Concern based on her prior scans that she may have an obstructing stone. No e/o renal abscess. Will try to transfer to [facility] or [facility] for availability of nephro/urology. - Time Time Spent with patient: 25-34 minutes Medications reviewed and adjusted accordingly: Yes Anticipated discharge: Home Within: within 72 hours - Inpatient Certification Based on my medical assessment, after consideration of the patient's comorbidities, presenting symptoms, or acuity I expect that the services needed warrant INPATIENT care.: Yes I certify that my determination is in accordance with my understanding of Medicare's requirements for reasonable and necessary INPATIENT services [42 CFR 412.3e].: Yes Medical Necessity: Need Close Monitoring Due to Risk of Patient Decompensation, Need For IV Fluids, Need for IV Antibiotics Post Hospital Care: D/C Hard [employer] Diver Documentation
--- NOTE | 2019-11-06 11:27 | RADIOLOGY REPORT (SQ) ---
EXAM DESCRIPTION: U/S RETROPERITON (RENAL/AORTA) IMAGES COMPLETED DATE/TIME: 11/06/2019 10:31 am REASON FOR STUDY: Spina bifida, self cath, pyelo, high fever COMPARISON: CT abdomen pelvis 06/07/2019, 02/12/2019 Ob ultrasound 08/20/2019 TECHNIQUE: Dynamic and static grayscale images acquired of the kidneys and bladder and recorded on P ACS. Additional selected color Doppler and spectral images recorded. LIMITATIONS: None. FINDINGS: RIGHT KIDNEY: Right kidney is 11.4 cm in length. No hydronephrosis. No cysts, stones, or masses LEFT KIDNEY: Left kidney is enlarged compared to prior CT exams, now 9.3 cm in length (was 7 cm on ). There is now marked hydronephrosis within the left kidney, new compared to prior CT exam. No left renal cortical cyst. No gross masses. Tiny left-sided intrarenal calculi seen on CT left ki dney 02/12/2019 not identified by ultrasound. BLADDER: Partially decompressed, not well seen. Unable to visualize ureteral jets. OTHER FINDINGS: Gravid uterus, a living fetus present, breech orientation, heart rate 160 beats per m inute. Detailed OB ultrasound not performed. IMPRESSION: Enlarged left kidney with significant hydronephrosis. Findings are worrisome for urinar y outflow obstruction from stone Gravid uterus, heart rate 160 beats per minute. Fetus breech orientation TECHNICAL DOCUMENTATION: JOB ID: [id number] 2010 [employer]- All Rights Reserved Reading location - IP/workstation name: [email or web address]
--- NOTE | 2019-11-06 11:28 | RADIOLOGY REPORT (SQ) ---
EXAM DESCRIPTION: CHEST 2 VIEWS IMAGES COMPLETED DATE/TIME: 11/06/2019 10:33 am REASON FOR STUDY: high grade fever, sepsis eval COMPARISON: 12/07/2018 chest film EXAM PARAMETERS: NUMBER OF VIEWS: two views TECHNIQUE: Digital Frontal and Lateral radiographic views of the chest acquired. RADIATION DOSE: NA LIMITATIONS: none FINDINGS: LUNGS AND PLEURA: No opacities, masses or pneumothorax. No pleural effusion. MEDIASTINUM AND HILAR STRUCTURES: No masses or contour abnormalities. HEART AND VASCULAR STRUCTURES: Heart normal size. No evidence for failure. BONES: No acute findings. HARDWARE: None in the chest. OTHER: No other significant finding. IMPRESSION: NO ACUTE RADIOGRAPHIC FINDING IN THE CHEST. TECHNICAL DOCUMENTATION: JOB ID: [id number] 2010 [employer]- All Rights Reserved Reading location - IP/workstation name: [email or web address]
[2019-11-06] MEDS ORDERED: POTASSIUM CHLORIDE 20 MEQ PACKET PO ONE (11:30)
[2019-11-06] MEDS ORDERED: CEFEPIME 2 GM/D5W RTU 2 GM/50 ML RTUPB IV SCH (11:30)
--- NOTE | 2019-11-06 12:06 | EKG REPORT ---
SEVERITY:- ABNORMAL ECG - SINUS TACHYCARDIA LEFT ATRIAL ABNORMALITY : Confirmed by: Martina Harrington MD 06-Nov-2019 12:04:57
[2019-11-06] MEDS ORDERED: CEFEPIME HCL 2 GM in DEXTROSE 5%-WATER 50 ML IV SCH ×2 (12:30→22:00)
[2019-11-06 12:35] LABS: A TYPE INFLUENZA AG NEGATIVE (NEGATIVE); B INFLUENZA AG NEGATIVE (NEGATIVE)
[2019-11-06] MEDS: WATER IV PRN ×4 (13:06→14:59)
[2019-11-06] MEDS: DEXTROSE 5% IV PRN ×4 (13:06→14:59)
[2019-11-06] MEDS: POTASSIUM CHLORIDE IV PRN ×4 (13:06→14:59)
--- NOTE | 2019-11-06 13:14 | PDOC CONSULTATION ---
Consultation Consult Date: 11/06/19 Attending physician:: CE AMARAL Provider Consulted: MORELIA BOO Consult reason:: Pyelonephritis, fever, possible sepsis History of Present Illness Admission Date/PCP: 11/06/19 04:37 ERIC PETERSON MD Patient complains of: Fever chills and vomiting History of Present Illness: ELEAZAR HENSON is a 19 year old female currently at 19 weeks, history of spina bifida, bladder and renal surgery in childhood, who presented to the hospital with complaints of nausea vomiting and fever. Symptoms started yesterday morning and progressively worsened prompting evaluation later on yesterday. She has also noted flank pains bilaterally. She admits to polyuria but denies dysuria or urinary urgency. On presentation yesterday, she was noted to have a urinary tract infection and admitted to the [facility] service for further care. Patient has continued to remain tachycardic and became hypotensive today. Hospitalist service consulted. Past Medical History Past Medical History: Spina bifida Past Surgical History Past Surgical History: Reports: Herniorrhaphy, Other - bowel resection, bladder expansion Social History Smoking Status: Never Smoker Frequency of Alcohol Use: None Hx Recreational Drug Use: No Drugs: None Hx Prescription Drug Abuse: No Family History Family History: Hypertension Parental Family History Reviewed: Yes Children Family History Reviewed: Unknown Sibling(s) Family History Reviewed.: Unknown Medication/Allergy Home Medications: Vit,Calc76/Iron/Folic [Prenatabs Rx Tablet] 1 tab PO DAILY 11/06/19 Allergies/Adverse Reactions: sulfamethoxazole [From Septra] Allergy (Unknown, Verified 11/24/18 10:07) trimethoprim [From Septra] Allergy (Unknown, Verified 11/24/18 10:07) latex [Latex] Allergy (Verified 11/24/18 10:07) petrolatum,white [From Petroleum Jelly] Allergy (Verified 11/24/18 10:07) Review of Systems Constitutional: PRESENT: fever(s) Eyes: ABSENT: visual disturbances Nose, Mouth, and Throat: ABSENT: headache(s) Cardiovascular: ABSENT: chest pain Respiratory: ABSENT: cough, dyspnea, sputum Gastrointestinal: PRESENT: nausea, vomiting. ABSENT: abdominal pain, diarrhea Genitourinary: ABSENT: difficulty urinating, dysuria Musculoskeletal: PRESENT: back pain Neurological: ABSENT: confusion, dizziness Psychiatric: ABSENT: anxiety Endocrine: PRESENT: polyuria Allergic/Immunologic: PRESENT: other - Denies rhinorrhea Physical Exam Vital Signs: Temp Pulse Resp BP Pulse Ox 99.0 F 117 H 22 H 97/55 L 100 11/06/19 10:49 11/06/19 11:11 11/06/19 10:49 11/06/19 11:11 11/06/19 03:15 Intake & Output 11/05/19 11/06/19 11/07/19 06:59 06:59 06:59 Intake Total 2049 Balance 2049 Weight 57.8 kg General appearance: PRESENT: no acute distress, cooperative Eye exam: PRESENT: EOMI Mouth exam: PRESENT: neck supple Neck exam: ABSENT: JVD Respiratory exam: PRESENT: clear to auscultation jakob, symmetrical, unlabored. ABSENT: tachypnea, wheezes Cardiovascular exam: PRESENT: +S1, +S2, tachycardia. ABSENT: irregular rhythm GI/Abdominal exam: PRESENT: soft, other - Gravid.. ABSENT: rebound, rigid, tenderness Torso Front/Back Image: 1 - Mildly tender 2 - Mildly tender Extremities exam: ABSENT: calf tenderness Neurological exam: PRESENT: alert, awake, oriented to person, oriented to place, oriented to time Psychiatric exam: ABSENT: agitated, anxious Skin exam: PRESENT: intact, normal color. ABSENT: pallor Results Laboratory Results: 11/06/19 10:18 11/06/19 10:18 11/06/19 11/06/19 11/06/19 02:00 02:25 02:25 WBC 19.2 H RBC 3.75 Hgb 11.7 L Hct 34.6 L MCV 92 MCH 31.2 MCHC 33.8 RDW 14.3 H Plt Count 252 Seg Neutrophils % Not Reportable Sodium 130.9 L Potassium 3.4 L Chloride 101 Carbon Dioxide 21 L Anion Gap 9 BUN 12 Creatinine 0.54 Est GFR ( Amer) > 60 Glucose 104 Lactic Acid Calcium 8.9 Total Bilirubin 0.7 AST 22 Alkaline Phosphatase 63 Total Protein 6.6 Albumin 3.6 Urine Color YELLOW Urine Appearance CLOUDY Urine pH 7.0 Ur Specific [place] 1.009 Urine Protein 30 H Urine Glucose (UA) NEGATIVE Urine Ketones TRACE H Urine Blood SMALL H Urine Nitrite NEGATIVE Ur Leukocyte Esterase MODERATE H Urine WBC (Auto) 2 Urine RBC (Auto) 0 11/06/19 11/06/19 11/06/19 10:18 10:18 10:18 WBC 26.5 H RBC 3.25 L Hgb 10.0 L Hct 29.7 L MCV 91 MCH 30.8 MCHC 33.6 RDW 14.4 H Plt Count 220 Seg Neutrophils % Not Reportable Sodium 129.5 L Potassium 3.0 L* Chloride 104 Carbon Dioxide 18 L Anion Gap 8 BUN 8 Creatinine 0.50 L Est GFR ( Amer) > 60 Glucose 99 Lactic Acid 1.2 Calcium 8.2 L Total Bilirubin 1.0 AST 19 Alkaline Phosphatase 49 Total Protein 5.4 L Albumin 2.8 L Urine Color Urine Appearance Urine pH Ur Specific [place] Urine Protein Urine Glucose (UA) Urine Ketones Urine Blood Urine Nitrite Ur Leukocyte Esterase Urine WBC (Auto) Urine RBC (Auto) Impressions: Obstetrics Ultrasound 11/06/19 03:20 IMPRESSION: Targeted OB sonogram for requested parameters Chest X-Ray 11/06/19 09:54 IMPRESSION: NO ACUTE RADIOGRAPHIC FINDING IN THE CHEST. Renal Ultrasound 11/06/19 09:56 IMPRESSION: Enlarged left kidney with significant hydronephrosis. Findings are worrisome for urinary outflow obstruction from stone Gravid uterus, heart rate 160 beats per minute. Fetus breech orientation Assessment and Plan - Diagnosis (1) Hydronephrosis due to obstruction of ureter Is this a current diagnosis for this admission?: Yes Plan: Renal ultrasound shows severe left hydronephrosis which is new and was not present on her CT imaging in June 2019. Likely this is secondary to nephrolithiasis as prior imaging has shown presence of nephrolithiasis last year. She could also possibly have a stricture there. Either way, patient will require transfer for tertiary facility for urgent urologic intervention in order to save the left kidney. Likely, patient has significant acute left renal impairment at this point but her creatinine is still normal given that her right kidney is compensating for this. (2) Acute pyelonephritis Is this a current diagnosis for this admission?: Yes Plan: Secondary to urinary outflow obstruction. Looking back of patient's prior urine cultures 2 months ago, she has history of MSSA as well as GBS in urine. Given p niyah's current picture of possible early developing sepsis, will broaden antibiotic coverage and put on vancomycin and cefepime which should cover those organisms if still present. Ultimately, patient will likely require correction of the outflow obstruction before her pyelonephritis starts to show remarkable improvement. Tylenol as needed for fevers. (3) Hypotension Qualifiers: Hypotension type: unspecified hypotension type Qualified Code(s): I95.9 - Hypotension, unspecified Is this a current diagnosis for this admission?: Yes Plan: 500 cc bolus will be administered and patient will be continued on continuous infusion. Likely secondary to dehydration or early developing sepsis complicated by her maternal state. Does not quite meet SOFA criteria for sepsis and does not appear septic or toxic on physical evaluation just yet but remains tachycardic with leukocytosis and febrile. Lactic acid is normal. Will monitor closely. Administer boluses as needed if systolic BP drops below 90. (4) Hypokalemia Is this a current diagnosis for this admission?: Yes Plan: Secondary to nausea and vomiting. P.o. and IV potassium repletion recommended. (5) Hyponatremia Is this a current diagnosis for this admission?: Yes Plan: Stable. Will monitor. (6) Qualifiers: Weeks of gestation: 19 weeks Qualified Code(s): Z3A.19 - 19 weeks gestation of Is this a current diagnosis for this admission?: Yes Plan: OB ultrasound was ordered. [facility] currently managing. - Plan Summary Summary: Recommendations discussed with [facility] provider. - Time Time Spent with patient: 25-34 minutes
--- NOTE | 2019-11-06 13:22 | PDOC TRANSFER SUMMARY ---
General Admission Date/PCP: 11/06/19 04:37 ERIC PETERSON MD Admission Date: 11/06/19 Transfer Date: 11/06/19 Accepting Facility: [facility] Accepting Physician: Cass Resuscitation Status: Full Code - Transfer Diagnosis (1) Sepsis Is this a current diagnosis for this admission?: Yes (2) Leukocytosis Is this a current diagnosis for this admission?: Yes (3) Tachycardia Is this a current diagnosis for this admission?: Yes (4) Pyelonephritis Is this a current diagnosis for this admission?: Yes (5) Constipation Is this a current diagnosis for this admission?: Yes (7) Spina bifida of lumbar spine Is this a current diagnosis for this admission?: Yes (8) Hydronephrosis due to obstruction of ureter Is this a current diagnosis for this admission?: Yes - Transfer Medications Home Medications: Vit,Calc76/Iron/Folic [Prenatabs Rx Tablet] 1 tab PO DAILY 11/06/19 Transfer Medications: Current Medications Acetaminophen (Tylenol 325 Mg Tablet) 325 mg PO Q4HP PRN PRN Reason: FEVER >101 Stop: 12/06/19 05:24 Acetaminophen (Tylenol 325 Mg Tablet) 650 mg PO Q4HP PRN PRN Reason: fever greater than 101 F Stop: 12/06/19 09:11 Lactated Ringer's (Lactated Ringers 1000 Ml Iv Soln) 1,000 mls @ 125 mls/hr IV CONTINUOUS PRN PRN Reason: THIS MED IS NOT "PRN" Stop: 12/06/19 09:11 Last Admin: 11/06/19 11:20 Dose: 125 mls/hr Documented by: Acetaminophen (Ofirmev Inj/Pf 1000 Mg/100 Ml Sdv) 1,000 mg in 100 mls @ 400 mls/hr IV ONCEP PRN PRN Reason: THIS MED IS NOT "PRN" Cefepime HCl 2 gm/ Dextrose 50 mls @ 100 mls/hr IV Q12 [facility] Stop: 11/13/19 12:29 Last Admin: 11/06/19 13:01 Dose: 100 mls/hr, 100 mls/hr Documented by: Vancomycin HCl 750 mg/ (Dextrose) 250 mls @ 166.667 mls/hr IV Q8 [facility] Stop: 11/13/19 13:59 Potassium Chloride 10 meq/ (Dextrose) 55 mls @ 55 mls/hr IV Q2H PRN PRN Reason: THIS MED IS NOT "PRN" Last Admin: 11/06/19 13:06 Dose: 55 mls/hr Documented by: Lactated Ringer's (Lactated Ringers 1000 Ml Iv Soln) 1,000 mls @ 500 mls/hr IV CONTINUOUS PRN PRN Reason: THIS MED IS NOT "PRN" Stop: 12/06/19 12:48 Sodium Chloride (Saline Flush 2.5 Ml Monoject Prefil Syrin) 2.5 ml IV Q8 [facility] Stop: 12/06/19 13:59 - Allergies Allergies/Adverse Reactions: sulfamethoxazole [From Septra] Allergy (Unknown, Verified 11/24/18 10:07) trimethoprim [From Septra] Allergy (Unknown, Verified 11/24/18 10:07) latex [Latex] Allergy (Verified 11/24/18 10:07) petrolatum,white [From Petroleum Jelly] Allergy (Verified 11/24/18 10:07) - Diet/Activity Discharge Diet: As Tolerated Discharge Activity: Activity As Tolerated Hospital Course Hospital Course: 19yo at 19+0ega with h/o spina bifida and h/o bladder surgery as a child (seen at [place] by Dr. Scott and Dr Campos per patient) presented to ER with high fever and maternal tachycardia. Bilateral mild CVAT but urine is unimpressive. still with maternal tachy and fever, mild tachypnea but initially normal BPs. She denies cough and SOB. She was given IVF 4000ml since 0400 in ER. OB US with normal fetus at 19wks. Due to UA with minimal changes but patient worse richie when I arrived to assume care this am, CXR and sepsis w/u obtained and Renal US obtained. Also consult with Hospitalist due to concerns and we changed abx to broaden coverage to Cefepime and Vancomycin. Renal US showed left hydronephrosis significant change from her CT scan 06/2019 (Radiology will send records to [facility]). Concern for obstruction on US. Physical Exam Vital Signs: Temp Pulse Resp BP Pulse Ox 99.0 F 117 H 22 H 97/55 L 100 11/06/19 10:49 11/06/19 11:11 11/06/19 10:49 11/06/19 11:11 11/06/19 03:15 Intake & Output 11/05/19 11/06/19 11/07/19 06:59 06:59 06:59 Intake Total 2049 Balance 2049 Weight 57.8 kg General appearance: PRESENT: no acute distress, well-developed, well-nourished Head exam: PRESENT: atraumatic, normocephalic Neck exam: ABSENT: carotid bruit, JVD, lymphadenopathy, thyromegaly Respiratory exam: PRESENT: clear to auscultation jakob. ABSENT: rales, rhonchi, wheezes Cardiovascular exam: PRESENT: RRR. ABSENT: diastolic murmur, rubs, systolic murmur Pulses: PRESENT: normal dorsalis pedis pul GI/Abdominal exam: PRESENT: normal bowel sounds, soft. ABSENT: distended, guar ding, mass, organolmegaly, rebound, tenderness Rectal exam: PRESENT: deferred Extremities exam: PRESENT: calf tenderness Neurological exam: PRESENT: alert, awake, oriented to person, oriented to place, oriented to time, oriented to situation, CN II-XII grossly intact. ABSENT: motor sensory deficit Psychiatric exam: PRESENT: appropriate affect, normal mood. ABSENT: homicidal ideation, suicidal ideation Skin exam: PRESENT: dry, intact, warm. ABSENT: cyanosis, rash Results Laboratory Results: 11/06/19 10:18 11/06/19 10:18 11/06/19 11/06/19 11/06/19 02:00 02:25 02:25 WBC 19.2 H RBC 3.75 Hgb 11.7 L Hct 34.6 L MCV 92 MCH 31.2 MCHC 33.8 RDW 14.3 H Plt Count 252 Seg Neutrophils % Not Reportable Sodium 130.9 L Potassium 3.4 L Chloride 101 Carbon Dioxide 21 L Anion Gap 9 BUN 12 Creatinine 0.54 Est GFR ( Amer) > 60 Glucose 104 Lactic Acid Calcium 8.9 Total Bilirubin 0.7 AST 22 Alkaline Phosphatase 63 Total Protein 6.6 Albumin 3.6 Urine Color YELLOW Urine Appearance CLOUDY Urine pH 7.0 Ur Specific Goessel 1.009 Urine Protein 30 H Urine Glucose (UA) NEGATIVE Urine Ketones TRACE H Urine Blood SMALL H Urine Nitrite NEGATIVE Ur Leukocyte Esterase MODERATE H Urine WBC (Auto) 2 Urine RBC (Auto) 0 07/04/20 07/04/20 07/04/20 10:18 10:18 10:18 WBC 26.5 H RBC 3.25 L Hgb 10.0 L Hct 29.7 L MCV 91 MCH 30.8 MCHC 33.6 RDW 14.4 H Plt Count 220 Seg Neutrophils % Not Reportable Sodium 129.5 L Potassium 3.0 L* Chloride 104 Carbon Dioxide 18 L Anion Gap 8 BUN 8 Creatinine 0.50 L Est GFR ( Amer) > 60 Glucose 99 Lactic Acid 1.2 Calcium 8.2 L Total Bilirubin 1.0 AST 19 Alkaline Phosphatase 49 Total Protein 5.4 L Albumin 2.8 L Urine Color Urine Appearance Urine pH Ur Specific Goessel Urine Protein Urine Glucose (UA) Urine Ketones Urine Blood Urine Nitrite Ur Leukocyte Esterase Urine WBC (Auto) Urine RBC (Auto) 11/06/19 12:36 WBC RBC Hgb Hct MCV MCH MCHC RDW Plt Count Seg Neutrophils % Sodium Potassium Chloride Carbon Dioxide Anion Gap BUN Creatinine Est GFR ( Amer) Glucose Lactic Acid 2.5 H Calcium Total Bilirubin AST Alkaline Phosphatase Total Protein Albumin Urine Color Urine Appearance Urine pH Ur Specific Goessel Urine Protein Urine Glucose (UA) Urine Ketones Urine Blood Urine Nitrite Ur Leukocyte Esterase Urine WBC (Auto) Urine RBC (Auto) Impressions: Obstetrics Ultrasound 11/06/19 03:20 IMPRESSION: Targeted OB sonogram for requested parameters Chest X-Ray 11/06/19 09:54 IMPRESSION: NO ACUTE RADIOGRAPHIC FINDING IN THE CHEST. Renal Ultrasound 11/06/19 09:56 IMPRESSION: Enlarged left kidney with significant hydronephrosis. Findings are worrisome for urinary outflow obstruction from stone Gravid uterus, heart rate 160 beats per minute. Fetus breech orientation Status: Imported from PACS Plan Discharge Plan: Transfer to [facility]
[2019-11-06] MEDS ORDERED: VANCOMYCIN HCL 750 MG in DEXTROSE 5%-WATER 250 ML IV SCH (14:00)
== END 2019-11-06 15:50 | disposition short-term general hospital (02) | DRG 831 ==
LOC: ER 21:55 → OBSVTOIN 11-06 04:37 → LR 11-06 04:37
PROVIDERS: ADMIT Obstetrics & Gynecology; ATTEND Obstetrics & Gynecology
DX: O98.812 Other maternal infectious and parasitic diseases complicating pregnancy, second trimester (principal); A41.9 Sepsis, unspecified organism; O23.02 Infections of kidney in pregnancy, second trimester; O26.832 Pregnancy related renal disease, second trimester; N13.1 Hydronephrosis with ureteral stricture, not elsewhere classified; N10 Acute pyelonephritis; E87.1 Hypo-osmolality and hyponatremia; Q05.7 Lumbar spina bifida without hydrocephalus; E87.6 Hypokalemia; O99.282 Endocrine, nutritional and metabolic diseases complicating pregnancy, second trimester; O99.612 Diseases of the digestive system complicating pregnancy, second trimester; K59.00 Constipation, unspecified; Z03.818 Encounter for observation for suspected exposure to other biological agents ruled out; Z91.040 Latex allergy status; Z91.09 Other allergy status, other than to drugs and biological substances; Z90.49 Acquired absence of other specified parts of digestive tract; Z3A.19 19 weeks gestation of pregnancy; Z87.440 Personal history of urinary (tract) infections; Z88.2 Allergy status to sulfonamides
CPT/HCPCS: 36415; 71046; 76770; 76815; 80053; 81001; 83605; 85025; 85610; 87040; 87070; 87086; 87088; 87186; 87635; 87804; 93005; 93010; 94760; 96361; 96365; 99285; C9803; J0131; J0692; J0696; J3370; J3480; J3490; J7030; J7060